=== PATIENT | female | born 1950 | race African-American/Black ===

== ENCOUNTER 2018-05-06 16:56 | Inpatient (IN) | payer OTHER ==
--- NOTE | 2018-05-06 17:21 | PDOC ---
Attending Attestation - Resident Resident Name: Cathi Gee - ED Attending Attestation I have performed the following: I have examined & evaluated the patient, The case was reviewed & discussed with the resident, I agree w/resident's findings & plan, Exceptions are as noted - Physicial Exam PE: 05/06/18 17:59 Twelve-lead EKG was performed and reviewed by me. There is normal sinus rhythm with a normal rate. rate of 71 The axis is normal. The intervals are normal. There is normal R wave progression There are no ST or T wave abnormalities. Impression: Normal twelve-lead EKG - Medical Decision Making 05/06/18 17:32 68y F hx of htn, MVP presents with epigastric discomfort that feels like 'gas pain' last night after eating a meal, had some milk of magnesia that help resolve the pain until she had breakfast this morning when the pain returned and has been constant. pt notes some nausea, and denies any fever/chills, diarrhea, bpr, cp, sob, diaphoresis. pt notes having a similar episode of this 6 months ago after eating fatty food that resolved spontaneously. suspect possible gastritis vs pancreatitis vs gall stones will obtain blood work ekg to screen for acs will obtain RUQ US will give pepcid/maalox toradol for pain will reassess <Reymundo Currie - Last Filed: 05/06/18 17:55> - HPI HPI: 05/06/18 18:17 The patient is a 68 year old female, with a significant past medical history of HTN and MVP, who presents to the emergency department with, 2 days of epigastric pain. As per patient, her pain onset with associated nausea radiating to her chest and back. She notes taking milk of magnesia yesterday, with relief. She notes her pain onset once again after eating breakfast and persisted, prompting her visit to the ED today. She denies recent fevers, chills, headache or dizziness. She denies recent vomit. She denies recent dysuria, frequency, urgency or hematuria. She denies recent chest pain or shortness of breath. Allergies: Codeine. Past surgical history: Tonsillectomy, fibroidectomy Social history: Nonsmoker. Denies EtOH use and recreational drug use. Primary Care Physician: Dr. Kenney ([facility]) <Rick Giraldo - Last Filed: 05/06/18 18:17> Attestations - Attestations 05/06/18 18:17 Documentation prepared by Rick Giraldo, acting as medical health researcher for Reymundo Currie MD. <Rick Giraldo - Last Filed: 05/06/18 18:17>
[2018-05-06] MEDS ORDERED: FAMOTIDINE 20 MG/50 ML IVPB 20 MG/50 ML MG IVPB ONE ×2 (17:25→17:46)
[2018-05-06] MEDS ORDERED: SODIUM CHLORIDE 1,000 ML IV STA (17:25)
--- NOTE | 2018-05-06 17:30 | PDOC ---
History of Present Illness - General Chief Complaint: Pain Stated Complaint: ABDOMINAL PAIN Time Seen by Provider: 05/06/18 17:09 History Source: Patient Exam Limitations: No Limitations - History of Present Illness Initial Comments: 05/06/18 17:27 Pt is a 68yo f with PMH of HTN and MVP presenting to ED with complaints of abdominal pain that started last night. [place] said [place] in [place] and had [place] food. She started having upper abdominal pain. She took MoM but and it helped but the pain returned half an hour after she had breakfast today and has not gone away. Pain is in the upper abdomen, sometimes radiates to the back and the chest. Pt describes the pain as "gas pain". Not relieved or aggrevated by anything. She admits to nausea, but denies vomiting, diarrhea, constipation, blood in stool, fever, urinary symptoms, shortness of breath. Her sister was with her and is not experiencing the same symptoms. PMD: Molina Kenney PMH: see hpi PSH: tonsillectomy, fibroidectomy Meds: atenolol, hctz Social: denies Allergies: codeine (hallucinations) Past History - Past Medical History Allergies/Adverse Reactions: Allergies Allergy/AdvReac Type Severity Reaction Status Date / Time codeine Allergy Verified 05/06/18 17:01 Home Medications: Ambulatory Orders Atenolol [Tenormin -] 50 mg PO DAILY 05/06/18 Hydrochlorothiazide 25 mg PO DAILY 05/06/18 Cardiac Disorders: Yes (MVP) COPD: No HTN: Yes - Suicide/Smoking/Psychosocial Hx Smoking History: Never smoked Review of Systems - Review of Systems Constitutional: Yes: Weight Stable. No: Chills, Fever HEENTM: No: Symptoms Reported Respiratory: No: Cough, Shortness of Breath Cardiac (ROS): Yes: Chest Pain (feels like "gas"). No: Lightheadedness, Palpitations, Syncope, Chest Tightness ABD/GI: Yes: Nausea, Abdominal cramping (epigastric). No: Blood Streaked Bowels , Constipated, Diarrhea, Vomiting, Tarry Stools : No: Burning, Dysuria, Hematuria Musculoskeletal: Yes: Back Pain. No: Joint Pain, Muscle Pain, Neck Pain Integumentary: No: Rash Neurological: No: Headache, Numbness, Paresthesia, Tingling *Physical Exam - Vital Signs Last Vital Signs Temp Pulse Resp BP Pulse Ox 97.7 F 89 18 172/57 H 98 05/06/18 16:57 05/06/18 16:57 05/06/18 16:57 05/06/18 16:57 05/06/18 16:57 - Physical Exam General Appearance: Yes: Nourished, Appropriately Dressed. No: Apparent Distress HEENT: positive: EOMI, JIM, Pharynx Normal Neck: positive: Trachea midline, Supple. negative: Lymphadenopathy (R), Lymphadenopathy (L) Respiratory/Chest: positive: Lungs Clear, Normal Breath Sounds. negative: Crackles, Rales, Rhonchi, Wheezing Cardiovascular: positive: Regular Rhythm, Regular Rate, S1, S2. negative: Edema , JVD, Murmur Vascular Pulses: Carotid (R): 2+, Carotid (L): 2+, Dorsalis-Pedis (R): 2+, Doralis-Pedis (L): 2+ Gastrointestinal/Abdominal: positive: Normal Bowel Sounds, Soft, Tenderness ( epigastric tenderness. ). negative: Protuberent, Distended, Guarding, Rebound, Hernia, Mass Musculoskeletal: negative: CVA Tenderness, Vertebral Tenderness Extremity: positive: Normal Capillary Refill. 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 No signs of pericholecystic fluid, GB edema or duct dilation. Negative sonographic brothers's sign. Formal ultrasound ordered. ED Treatment Course - LABORATORY CBC & Chemistry Diagram: 05/06/18 17:40 05/06/18 17:40 Medical Decision Making - Medical Decision Making 05/06/18 18:48 Pt is a 68yo f with PMH of HTN and MVP presenting to ED with complaints of abdominal pain that started last night. crampy epigastric abdominal pain. Had fatty foods (fried mac and cheese, sausage) Vitals: Selected Entries 05/06/18 16:57 Temperature 97.7 F Pulse Rate 89 Respiratory 18 Rate Blood Pressure 172/57 H Blood Pressure 95 Mean O2 Sat by Pulse 98 Oximetry (%) PE: epigastric tenderness DDx: pancreatitis, cholecystitis, appendicitis, colitis, AAA, nephrolithiasis, pyelonephritis, ACS, PNA -low suspicion for pna given lack of cough, fevers. low suspicion for nephrolithiais with lack of urinary symptoms and flank pain. Seems more like cholecystitis v. pancreatitis v. GERD v. PUD cbc, cmp, trop, lipase, lactate, U/S, EKG, NS, pepcid, Maalox ordered. 05/06/18 18:49 Pt complaining of pain, will give IV Tylenol and reevaluate. 05/06/18 18:52 Laboratory Tests 05/06/18 05/06/18 05/06/18 17:24 17:40 17:40 WBC 7.0 Hgb 14.1 Hct 42.4 Plt Count 260 Sodium 136 Potassium 5.1 Chloride 103 BUN 19 H Creatinine 1.1 Random Glucose 166 H Lactic Acid Troponin I < 0.02 Lipase 99 05/06/18 17:40 WBC Hgb Hct Plt Count Sodium Potassium Chloride BUN Creatinine Random Glucose Lactic Acid 2.2 H* Troponin I Lipase Lipase normal, low suspicion for pancreatitis. LFTs normal, lower suspicion for cholecystitis but U/S pending. T.Bili slightly elevated. Waiting for ultrasound results. If negative, will reevaluate patient and dispo. CT scan may be necessary. Signed out to night team. Second lactate should be drawn. *DC/Admit/Observation/Transfer Diagnosis at time of Disposition: Abdominal pain Qualifiers: Abdominal location: epigastric Qualified Code(s): R10.13 - Epigastric pain - Referrals - Patient Instructions - Post Discharge Activity
[2018-05-06] MEDS ORDERED: MAG HYDROX/AL HYDROX/SIMETH 30 ML UNIT-DOSE CUP PO ONE (17:31)
[2018-05-06] MEDS ORDERED: MAG HYDROX/AL HYDROX/SIMETH 30 ML UNIT-DOSE CUP ONE (17:46)
[2018-05-06 17:53] LABS: BASO % 0.4 % (0-2.0); EOS % 0.6 % (0-4.5); HEMATOCRIT 42.4 % (32.4-45.2); HEMOGLOBIN 14.1 GM/dL (10.7-15.3); LYMPH % 25.7 % (8-40); MCHC 33.2 g/dl (32.0-36.0); MEAN CELL VOLUME 84.5 fl (80-96); MEAN PLT VOLUME 9.3 fl (7.5-11.1); MONO % 4.8 % (3.8-10.2); NEUT % 68.5 % (42.8-82.8); PLATELET COUNT 260 K/MM3 (134-434); RBC 5.02 M/mm3 (3.60-5.2); RDW 13.8 % (11.6-15.6)
[2018-05-06 18:21] LABS: ALBUMIN 3.8 g/dl (3.4-5.0); ALK PHOS 100 U/L (45-117); BILIRUBIN,TOTAL 1.2 mg/dL (0.2-1); BLOOD UREA NITROGEN 19 mg/dL (7-18); CALCIUM 8.8 mg/dL (8.5-10.1); CHLORIDE 103 mmol/L (98-107); CO2 26 mmol/L (21-32); CREATININE 1.1 mg/dL (0.55-1.3); GLUCOSE,RANDOM 166 mg/dL (74-106); SGPT/ALT 43 U/L (13-61); SODIUM 136 mmol/L (136-145); TOT PROT 6.8 g/dl (6.4-8.2)
[2018-05-06 18:22] LABS: ANION GAP 8 MMOL/L (8-16); POTASSIUM 5.1 mmol/L (3.5-5.1); SGOT/AST 33 U/L (15-37)
[2018-05-06 18:35] LABS: LIPASE 99 U/L (73-393)
[2018-05-06] MEDS ORDERED: ACETAMINOPHEN 1000 MG/100 ML VIAL (NON FORMULARY) IVPB ONE (18:47)
[2018-05-06] MEDS ORDERED: ACETAMINOPHEN INJECTION 100 ML IVPB ONE ×2 (18:50→21:51)
[2018-05-06 19:02] LABS: URINE APPEARANCE CLEAR; URINE BILIRUBIN NEGATIVE (<2.0 mg/dL); URINE COLOR LTYELLOW; URINE GLUCOSE (UA) 1+ (NEGATIVE); URINE KETONE NEGATIVE (NEGATIVE); URINE LEUK ESTERASE 3+ (NEGATIVE); URINE NITRITE NEGATIVE (NEGATIVE); URINE PROTEIN 1+ (NEGATIVE); URINE UROBILINOGEN NEGATIVE mg/dL (0.2-1.0)
[2018-05-06 19:09] LABS: EPI CELLS FEW /HPF (FEW); URINE BACTERIA RARE /hpf (NONE SEEN); URINE MUCUS RARE
[2018-05-06] MEDS ORDERED: FUROSEMIDE 40 MG/4 ML INJECTABLE VIAL IVPUSH ONE (20:18)
[2018-05-06] MEDS ORDERED: CEFTRIAXONE 1,000 MG in DEXTROSE 5%-WATER - 50 ML IVPB ONE (20:26)
--- NOTE | 2018-05-06 20:31 | PDOC ---
*Physical Exam - Vital Signs Last Vital Signs Temp Pulse Resp BP Pulse Ox 97.7 F 89 18 172/57 H 98 05/06/18 16:57 05/06/18 16:57 05/06/18 16:57 05/06/18 16:57 05/06/18 16:57 ED Treatment Course - LABORATORY CBC & Chemistry Diagram: 05/06/18 17:40 05/06/18 17:40 - ADDITIONAL ORDERS Additional order review: Laboratory Results 05/06/18 05/06/18 05/06/18 19:28 18:45 17:40 Sodium Potassium Chloride Carbon Dioxide Anion Gap BUN Creatinine Creat Clearance w eGFR Random Glucose Lactic Acid 2.2 H* 2.2 H* Calcium Total Bilirubin AST ALT Alkaline Phosphatase Troponin I Total Protein Albumin Lipase Urine Color Ltyellow Urine Appearance Clear Urine pH 7.0 Ur Specific [place] 1.013 Urine Protein 1+ H Urine Glucose (UA) 1+ H Urine Ketones Negative Urine Blood Negative Urine Nitrite Negative Urine Bilirubin Negative Urine Urobilinogen Negative Ur Leukocyte Esterase 3+ H Urine WBC (Auto) 18 Urine RBC (Auto) 4 Ur Epithelial Cells Few Urine Bacteria Rare Urine Mucus Rare 05/06/18 05/06/18 17:40 17:24 Sodium 136 Potassium 5.1 Chloride 103 Carbon Dioxide 26 Anion Gap 8 BUN 19 H Creatinine 1.1 Creat Clearance w eGFR 49.25 Random Glucose 166 H Lactic Acid Calcium 8.8 Total Bilirubin 1.2 H AST 33 ALT 43 Alkaline Phosphatase 100 Troponin I < 0.02 Total Protein 6.8 Albumin 3.8 Lipase 99 Urine Color Urine Appearance Urine pH Ur Specific [place] Urine Protein Urine Glucose (UA) Urine Ketones Urine Blood Urine Nitrite Urine Bilirubin Urine Urobilinogen Ur Leukocyte Esterase Urine WBC (Auto) Urine RBC (Auto) Ur Epithelial Cells Urine Bacteria Urine Mucus 05/06/18 17:40 RBC 5.02 MCV 84.5 MCHC 33.2 RDW 13.8 MPV 9.3 Neutrophils % 68.5 Lymphocytes % 25.7 Monocytes % 4.8 Eosinophils % 0.6 Basophils % 0.4 - Medications Given in the ED: ED Medications Discontinued Medications Generic Name Dose Route Start Last Admin Trade Name Freq PRN Reason Stop Dose Admin Acetaminophen 1,000 mg 05/06/18 18:47 05/06/18 18:50 Ofirmev Injection - IVPB 05/06/18 18:48 1,000 mg ONCE ONE Administration Al Hydroxide/Mg Hydroxide 30 ml 05/06/18 17:31 05/06/18 17:58 Mylanta Oral Suspension - PO 05/06/18 17:32 30 ml ONCE ONE Administration Sodium Chloride 1,000 mls @ 1,000 mls/hr 05/06/18 17:25 05/06/18 17:58 Normal Saline - IV 05/06/18 18:24 1,000 mls/hr ASDIR STA Administration Famotidine/Sodium Chloride 20 mg in 50 mls @ 100 mls/hr 05/06/18 17:25 17:58 Pepcid 20 Mg Premixed Ivpb - IVPB 05/06/18 17:54 100 mls/hr ONCE ONE Administration Medical Decision Making - Medical Decision Making 05/06/18 20:21 I received the patient on signout and she has an unchanged lactic acid despite treatment in the ER. 05/06/18 20:31 Patient Name: DENISE HERNÁNDEZ PRELIMINARY REPORT FROM [facility] EXAM: Ultrasound abdomen, limited and Duplex scan abdomen DATE: 2018-05-06 18:09:53 IMAGES: 57 HISTORY: Cholecystitis REPORT: Multiple gallstones are present. No definite sign of acute inflammation. No biliary dilation seen. Liver shows no definite focal mass. Right kidney shows no hydronephrosis. Portal vein shows unremarkable venous waveform with hepatopedal flow. THIS DOCUMENT HAS BEEN ELECTRONICALLY SIGNED 05/06/18 20:51 Pt will be admitted to the hospitalist for observation; she has large gallstones and biliary colic however, no cholecystitis at this time. Tbili is slightly elevated. She may have a stone going in and out of the duct. Pt has an elevated lactic acid. Pt also has an early UTI. *DC/Admit/Observation/Transfer Diagnosis at time of Disposition: Abdominal pain Qualifiers: Abdominal location: epigastric Qualified Code(s): R10.13 - Epigastric pain - Referrals - Patient Instructions - Post Discharge Activity
[2018-05-06] MEDS ORDERED: CEFTRIAXONE 1 GM/50 ML BAG ONE (20:41)
--- NOTE | 2018-05-06 20:52 | PN ---
Teaching Attending Note Name of Resident: Steve Mcclelland ATTENDING PHYSICIAN STATEMENT I saw and evaluated the patient. I reviewed the resident's note and discussed the case with the resident. I agree with the resident's findings and plan as documented. SUBJECTIVE: Patient is a 68 year old woman with PMH of HTN and MVP presenting to ER with complaints of abdominal pain that started last night. [place] in [place] and had [place] food and started having upper abdominal pain. She took MoM and it helped but the pain returned half an hour after she had breakfast today and has not gone away. Pain is in the upper abdomen, sometimes radiates to the back and the chest. Describes the pain as "gas pain". Not relieved or aggravated by anything. She admits to nausea, but denies vomiting, diarrhea, constipation, blood in stool, fever, urinary symptoms, shortness of breath. Her sister was with her and is not experiencing the same symptoms. OBJECTIVE: Alert Vital Signs Period Temp Pulse Resp BP Sys/Pratt Pulse Ox Last 24 Hr 97.7 F-98.3 F 66-89 18-20 172-179/57-77 98-99 HEENT: No Jaundice, eye redness or discharge, PERRLA, EOMI. Normocephalic, atraumatic. External ears are normal and hearing is grossly intact. No nasal discharge. Neck: Supple, nontender. No palpable adenopathy or thyromegaly. No JVD Chest: Good effort. Clear to auscultation and percussion. Heart: Regular. No S3 or rub; 2/6 REINA Abdomen: Not distended, soft, nontender and no HSM. No rebound or guarding. Normoactive bowel sounds. Ext: Peripheral pulses intact. No leg edema. Skin: Warm and dry. No petechiae, rash or ecchymosis. Neuro: Alert. Oriented x3. CN 2-12 grossly intact. Sensation grossly intact in all four extremities and DTR are symmetric. Current Medications Generic Name Dose Route Start Last Admin Trade Name Freq PRN Reason Stop Dose Admin Ceftriaxone Sodium 1,000 mg/ 50 mls @ 100 mls/hr 05/06/18 20:26 Dextrose IVPB 05/06/18 20:55 ONCE ONE Home Medications Medication Instructions Recorded Atenolol [Tenormin -] 50 mg PO DAILY 05/06/18 Hydrochlorothiazide 25 mg PO DAILY 05/06/18 Abnormal Lab Results 05/06/18 05/06/18 05/06/18 17:40 17:40 18:45 BUN 19 H Random Glucose 166 H Lactic Acid 2.2 H* Total Bilirubin 1.2 H Urine Protein 1+ H Urine Glucose (UA) 1+ H Ur Leukocyte Esterase 3+ H 05/06/18 19:28 BUN Random Glucose Lactic Acid 2.2 H* Total Bilirubin Urine Protein Urine Glucose (UA) Ur Leukocyte Esterase ASSESSMENT AND PLAN: 1. Abdominal pain and UTI - Pain likely due to cholelithiasis. No evidence of cholecyctitis at this time. Will get CT abdomen and HIDA scan and consult GI and Surgery. Treat UTI with rocephin 1 gm q 24 hours. No acute pathology on CXR and EKG shows NSR with no significant ST-T wave changes. Initial troponin is negative. Lactic acidosis is unexplained since there is no other significant evidence of sepsis. Keep her NPO for now and continue IV NS and trend lactic acid level. Will restart her antihypertensive medications but reduce HCTZ to 12.5 mg q am, give atenolol 50 mg po q am and add amlodipine 5 mg po q pm. Check HBA1c. 2. Obesity - Will provide patient all the necessary assistance, counseling and positive reinforcement to facilitate weight loss. Consult welt edge rounder. 3. DVT prophylaxis - Lovenox 40 mg SQ q 24 hours. 4. Advance directives - Full code
--- NOTE | 2018-05-06 20:52 | PDOC ---
*Physical Exam - Vital Signs Last Vital Signs Temp Pulse Resp BP Pulse Ox 98.3 F 66 20 179/77 H 99 05/06/18 20:21 05/06/18 20:21 05/06/18 20:21 05/06/18 20:21 05/06/18 20:21 ED Treatment Course - LABORATORY CBC & Chemistry Diagram: 05/06/18 17:40 05/06/18 17:40 - ADDITIONAL ORDERS Additional order review: Laboratory Results 05/06/18 05/06/18 05/06/18 19:28 18:45 17:40 Sodium Potassium Chloride Carbon Dioxide Anion Gap BUN Creatinine Creat Clearance w eGFR Random Glucose Lactic Acid 2.2 H* 2.2 H* Calcium Total Bilirubin AST ALT Alkaline Phosphatase Troponin I Total Protein Albumin Lipase Urine Color Ltyellow Urine Appearance Clear Urine pH 7.0 Ur Specific [place] 1.013 Urine Protein 1+ H Urine Glucose (UA) 1+ H Urine Ketones Negative Urine Blood Negative Urine Nitrite Negative Urine Bilirubin Negative Urine Urobilinogen Negative Ur Leukocyte Esterase 3+ H Urine WBC (Auto) 18 Urine RBC (Auto) 4 Ur Epithelial Cells Few Urine Bacteria Rare Urine Mucus Rare 05/06/18 05/06/18 17:40 17:24 Sodium 136 Potassium 5.1 Chloride 103 Carbon Dioxide 26 Anion Gap 8 BUN 19 H Creatinine 1.1 Creat Clearance w eGFR 49.25 Random Glucose 166 H Lactic Acid Calcium 8.8 Total Bilirubin 1.2 H AST 33 ALT 43 Alkaline Phosphatase 100 Troponin I < 0.02 Total Protein 6.8 Albumin 3.8 Lipase 99 Urine Color Urine Appearance Urine pH Ur Specific [place] Urine Protein Urine Glucose (UA) Urine Ketones Urine Blood Urine Nitrite Urine Bilirubin Urine Urobilinogen Ur Leukocyte Esterase Urine WBC (Auto) Urine RBC (Auto) Ur Epithelial Cells Urine Bacteria Urine Mucus 05/06/18 17:40 RBC 5.02 MCV 84.5 MCHC 33.2 RDW 13.8 MPV 9.3 Neutrophils % 68.5 Lymphocytes % 25.7 Monocytes % 4.8 Eosinophils % 0.6 Basophils % 0.4 - Medications Given in the ED: ED Medications Discontinued Medications Generic Name Dose Route Start Last Admin Trade Name Freq PRN Reason Stop Dose Admin Acetaminophen 1,000 mg 05/06/18 18:47 05/06/18 18:50 Ofirmev Injection - IVPB 05/06/18 18:48 1,000 mg ONCE ONE Administration Al Hydroxide/Mg Hydroxide 30 ml 05/06/18 17:31 05/06/18 17:58 Mylanta Oral Suspension - PO 05/06/18 17:32 30 ml ONCE ONE Administration Sodium Chloride 1,000 mls @ 1,000 mls/hr 05/06/18 17:25 05/06/18 17:58 Normal Saline - IV 05/06/18 18:24 1,000 mls/hr ASDIR STA Administration Famotidine/Sodium Chloride 20 mg in 50 mls @ 100 mls/hr 05/06/18 17:25 17:58 Pepcid 20 Mg Premixed Ivpb - IVPB 05/06/18 17:54 100 mls/hr ONCE ONE Administration *DC/Admit/Observation/Transfer Diagnosis at time of Disposition: Abdominal pain Qualifiers: Abdominal location: epigastric Qualified Code(s): R10.13 - Epigastric pain - Discharge Dispostion Decision to Admit order: Yes - Referrals - Patient Instructions - Post Discharge Activity
--- NOTE | 2018-05-06 21:28 | CONSULT ---
Consult Consult Specialty:: General surgery Reason for Consultation:: Bilary colic - History of Present Illness Chief Complaint: abdominal pain History of Present Illness: 68yo female PMH obesity, HTN and MVP presenting to ED with complaints of abdominal pain that started last night. [place] said [place] was in [place] and had Muslim food. She started having upper abdominal pain. She took MoM but and it helped but the pain returned half an hour after she had breakfast today and has not gone away. Abdominal ultrasound showed cholelithiasis with out signs of acute cholecystitis. we were asked to assess. - History Source History Provided By: Patient, Medical Record Limitations to Obtaining History: No Limitations - Smoking History Smoking history: Never smoked Home Medications - Allergies Allergies/Adverse Reactions: Allergies Allergy/AdvReac Type Severity Reaction Status Date / Time codeine Allergy Verified 05/06/18 17:01 - Home Medications Home Medications: Ambulatory Orders Atenolol [Tenormin -] 50 mg PO DAILY 05/06/18 Hydrochlorothiazide 25 mg PO DAILY 05/06/18 Review of Systems - Review of Systems Constitutional: denies: Chills, Fever Eyes: denies: Blind Spots, Recent Change in Vision HENT: denies: Difficult Swallowing, Throat Pain Neck: denies: Tenderness Cardiovascular: denies: Chest Pain Respiratory: denies: Cough, SOB Gastrointestinal: reports: Abdominal Pain. denies: Constipation, Diarrhea Genitourinary: denies: Burning, Discharge, Dysuria Breasts: reports: No Symptoms Reported. denies: Pain Musculoskeletal: denies: Back Pain, Muscle Cramps, Muscle Weakness Integumentary: denies: Eczema, Erythema, Rash Neurological: denies: Seizure, Syncope, Tremors Endocrine: denies: Unexplained Weight Gain, Unexplained Weight Loss Hematology/Lymphatic: denies: Easily Bruised, Excessive Bleeding Psychiatric: denies: Anxiety, Depression Physical Exam Vital Signs: Vital Signs Temperature 98.3 F 05/06/18 20:21 Pulse Rate 66 05/06/18 20:21 Respiratory Rate 20 05/06/18 20:21 Blood Pressure 179/77 H 05/06/18 20:21 O2 Sat by Pulse Oximetry (%) 99 05/06/18 20:21 Constitutional: Yes: Well Nourished, No Distress, Obese Eyes: Yes: Conjunctiva Clear, EOM Intact HENT: Yes: Atraumatic, Normocephalic Neck: Yes: Supple, Trachea Midline Cardiovascular: Yes: Regular Rate and Rhythm Respiratory: Yes: Regular, CTA Bilaterally Gastrointestinal: Yes: Normal Bowel Sounds, Soft, Abdomen, Obese, Tenderness ( RUQ on deep palpation) ...Rectal Exam: Yes: Deferred Renal/: No: CVA Tenderness - Left, CVA Tenderness - Right Musculoskeletal: No: Muscle Pain, Muscle Weakness Extremities: No: Cool, Cyanosis Edema: No Peripheral Pulses WNL: Yes Integumentary: No: Jaundice, Rash Neurological: Yes: Alert, Oriented Psychiatric: Yes: Alert, Oriented Labs: CBC, BMP 05/06/18 17:40 05/06/18 17:40 Imaging - Results Ultrasound: Report Reviewed, Image Reviewed (cholelithiasis distended gallbladder) Problem List - Problems (1) Calculus of gallbladder and bile duct with cholecystitis Assessment/Plan: 68 yo female PMH obesity and HTN presented with right upper quadrant abdominal pain NPO and IVF hydration adequate analgesia repeat labs in AM Advance diet as tolerated then discharge and f/u for elective cholecystecomy - information provided Thank you for the opportunity to participate in the care of this patient. Code(s): K80.60 - CALCULUS OF GB AND BILE DUCT W CHOLECYST, UNSP, W/O OBST Qualifiers: Cholecystitis acuity: acute and chronic Biliary obstruction: without biliary obstruction Qualified Code(s): K80.66 - Calculus of gallbladder and bile duct with acute and chronic cholecystitis without obstruction (2) Obesity (BMI 30-39.9) Code(s): E66.9 - OBESITY, UNSPECIFIED (3) HTN (hypertension) Code(s): I10 - ESSENTIAL (PRIMARY) HYPERTENSION Qualifiers: Hypertension type: essential hypertension Qualified Code(s): I10 - Essential (primary) hypertension (4) Biliary colic symptom Code(s): K80.50 - CALCULUS OF BILE DUCT W/O CHOLANGITIS OR CHOLECYST W/O OBST
[2018-05-06] MEDS ORDERED: SODIUM CHLORIDE 0.9% 500 ML INFUS.BAG IV ONE (21:30)
[2018-05-06] MEDS ORDERED: SODIUM CHLORIDE 1,000 ML IV ONE (21:45)
[2018-05-06] MEDS ORDERED: HYDROCHLOROTHIAZIDE 25 MG TABLET (FP) PO ONE (21:52)
--- NOTE | 2018-05-06 22:16 | HP ---
CHIEF COMPLAINT: Epigastric abdominal pain PCP: Dr. Molina Kenney HISTORY OF PRESENT ILLNESS: Patient is a 68 year old female with history of hypertension, presents with complaint of epigastric abdominal pain. Began yesterday evening approx. 8pm after visiting [facility] and eating fried fish, macaroni and cheese, cook islander fries and pecan pie. She described pain as cramping initially localized to the epigastrium, and progressively radiating diffusely within the abdomen, and to chest and back. Pain associated with feeling "gassy, and bloated ", in addition to nausea, without any vomiting. She drank milk of magnesia which was palliative. This morning she had breakfast of sausage with grapefruit which provoked the similar symptoms from the prior night. Patient admits similar symptoms 6 months ago after eating a cheeseburger, which resolved spontaneously, and was not worked up by primary care physician or any emergency department. She currently states pain is 1/10 intensity, significantly improved. Denies fevers, chills, shortness of breath, chest pain, palpitations, vomiting, diarrhea, constipation, melena, hematochezia, dysuria, hematuria, urinary frequency, fall, loss of conciousness, trauma to abdomen. ER course was notable for: (1) IV normal saline 1L bolus, (2) Pepcid 20mg IV, Mylanta 30mL PO, Ofirmev 1000mL IV, Rocephin 1gram IV (3) Ultrasound abdomen: numerous gallstones, without definite sins of acute inflammation. No biliary dilation noted. 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 Family History: Mother: at 38 y/o due to unknown "kidney issues" Father: at 74 y/o due to prostate cancer Allergies codeine Allergy (Verified 05/06/18 17:01) HOME MEDICATIONS: Home Medications Medication Instructions Recorded Atenolol [Tenormin -] 50 mg PO DAILY 05/06/18 Hydrochlorothiazide 25 mg PO DAILY 11/11/18 REVIEW OF SYSTEMS CONSTITUTIONAL: Absent: fever, chills, diaphoresis, generalized weakness, malaise, loss of appetite, weight change HEENT: Absent: rhinorrhea, nasal congestion, throat pain, throat swelling, difficulty swallowing, mouth swelling, ear pain, eye pain, visual changes CARDIOVASCULAR: Absent: chest pain, syncope, palpitations, irregular heart rate, lightheadedness , peripheral edema RESPIRATORY: Absent: cough, shortness of breath, dyspnea with exertion, orthopnea, wheezing, stridor, hemoptysis GASTROINTESTINAL: Admits: abdominal pain, nausea, Absent: abdominal distension, vomiting, diarrhea , constipation, melena, hematochezia GENITOURINARY: Absent: dysuria, frequency, urgency, hesitancy, hematuria, flank pain, genital pain MUSCULOSKELETAL: Absent: myalgia, arthralgia, joint swelling, back pain, neck pain SKIN: Absent: rash, itching, pallor HEMATOLOGIC/IMMUNOLOGIC: Absent: easy bleeding, easy bruising, lymphadenopathy, frequent infections ENDOCRINE: Absent: unexplained weight gain, unexplained weight loss, heat intolerance, cold intolerance NEUROLOGIC: Absent: headache, focal weakness or paresthesias, dizziness, unsteady gait, seizure, mental status changes, bladder or bowel incontinence PSYCHIATRIC: Absent: anxiety, depression, suicidal or homicidal ideation, hallucinations. PHYSICAL EXAMINATION Vital Signs - 24 hr 05/06/18 05/06/18 16:57 20:21 Temperature 97.7 F 98.3 F Pulse Rate 89 Pulse Rate [ 66 Radial] Respiratory 18 20 Rate Blood Pressure 172/57 H Blood Pressure 179/77 H [Left Arm] O2 Sat by Pulse 98 99 Oximetry (%) GENERAL: -Swedish female, appears state age. Awake, alert, and fully oriented, in no acute distress. HEAD: Normal with no signs of trauma. EYES: Pupils equal, round and reactive to light, extraocular movements intact without nystagmus, sclera anicteric, conjunctiva clear. EARS, NOSE, THROAT: Ears normal, nares patent, oropharynx clear without exudates. Moist mucous membranes. NECK: Normal range of motion, supple without lymphadenopathy, JVD, or masses. LUNGS: Breath sounds equal, clear to auscultation bilaterally. No wheezes, and no crackles. No accessory muscle use. HEART: Regular rate and rhythm, normal S1 and S2 with 2/6 holosystolic murmur loudest at apex ABDOMEN: Obese. Soft, mildly distended. Slight tenderness within epigastrium to deep palpation. No guarding, no rebound tenderness. Negative Ram's sign. Normoactive bowel sounds X4 quadrants. No heparosplenomegaly palpated or percussed. MUSCULOSKELETAL: Normal range of motion at all joints b/l upper and lower extremities. No bony deformities or tenderness. No CVA tenderness. UPPER EXTREMITIES: 2+ radial pulses b/l, warm, well-perfused. LOWER EXTREMITIES: 2+ dorsalis pedis pulses b/l, warm, well-perfused. No peripheral edema b/l. NEUROLOGICAL: Cranial nerves II-XII intact. Normal speech. Strength 5/5 b/l upper and lower extremities. PSYCHIATRIC: Cooperative. Good eye contact. Appropriate mood and affect upon my encounter today. SKIN: Warm, dry, normal turgor, no rashes or lesions noted, normal capillary refill. Laboratory Results - last 24 hr 05/06/18 05/06/18 05/06/18 17:24 17:40 17:40 WBC 7.0 RBC 5.02 Hgb 14.1 Hct 42.4 MCV 84.5 MCH 28.0 MCHC 33.2 RDW 13.8 Plt Count 260 MPV 9.3 Absolute Neuts (auto) 4.8 Neutrophils % 68.5 Lymphocytes % 25.7 Monocytes % 4.8 Eosinophils % 0.6 Basophils % 0.4 Nucleated RBC % 0 Sodium 136 Potassium 5.1 Chloride 103 Carbon Dioxide 26 Anion Gap 8 BUN 19 H Creatinine 1.1 Creat Clearance w eGFR 49.25 Random Glucose 166 H Lactic Acid Calcium 8.8 Total Bilirubin 1.2 H AST 33 ALT 43 Alkaline Phosphatase 100 Troponin I < 0.02 Total Protein 6.8 Albumin 3.8 Lipase 99 Urine Color Urine Appearance Urine pH Ur Specific [place] Urine Protein Urine Glucose (UA) Urine Ketones Urine Blood Urine Nitrite Urine Bilirubin Urine Urobilinogen Ur Leukocyte Esterase Urine WBC (Auto) Urine RBC (Auto) Ur Epithelial Cells Urine Bacteria Urine Mucus 05/06/18 05/06/18 05/06/18 17:40 18:45 19:28 WBC RBC Hgb Hct MCV MCH MCHC RDW Plt Count MPV Absolute Neuts (auto) Neutrophils % Lymphocytes % Monocytes % Eosinophils % Basophils % Nucleated RBC % Sodium Potassium Chloride Carbon Dioxide Anion Gap BUN Creatinine Creat Clearance w eGFR Random Glucose Lactic Acid 2.2 H* 2.2 H* Calcium Total Bilirubin AST ALT Alkaline Phosphatase Troponin I Total Protein Albumin Lipase Urine Color Ltyellow Urine Appearance Clear Urine pH 7.0 Ur Specific [place] 1.013 Urine Protein 1+ H Urine Glucose (UA) 1+ H Urine Ketones Negative Urine Blood Negative Urine Nitrite Negative Urine Bilirubin Negative Urine Urobilinogen Negative Ur Leukocyte Esterase 3+ H Urine WBC (Auto) 18 Urine RBC (Auto) 4 Ur Epithelial Cells Few Urine Bacteria Rare Urine Mucus Rare ASSESSMENT/PLAN: Patient is a 68 year old female with history of hypertension, presents with complaint of epigastric abdominal pain. Cholelithiasis -Ultrasound of gallbladder confirms presence of stones, without acute inflammation. -F/U CT abdomen pelvis -NPO -Surgery consult (Dr. Camejo) -GI consult (Dr. Perez) -IV normal saline at 100mL/ hour -Pain control with Ofirmev 1000mg IV Q6H Chest pain -Will rule out cardiac pathology as abdominal pain in female could be atypical cardiac etiology. -EKG shows normal sinus rhythm at 71 bpm. -First troponin 0.02. Will follow. Elevated lactic acid -Unclear etiology. May be suggestive of early cholecystitis? -2.2 -> 2.2 after one liter bolus normal saline. Will continue to hydrate with IV normal saline at 100mL/ hour and follow lactic acid. -UA does show 3+ leukocyte esterase, 18 WBC,m 4 RBC. Patient denies dysuria, hematuria, urinary urgency, frequency. No CVA tenderness upon exam. -Will continue Rocephin 1 gram IV Q24H for UTI -Chest Xray to rule out pulmonary pathology. Hypertension -Hydrochlorothiazide 12.5mg PO one time dose now. -Reinstate Atenolol 50mg PO daily -Change dose of Hydrochlorothiazide 25mg PO daily to 12.5mg PO daily -Begin Amlodipine 5mg PO QHS Obesity -BMI 36.1 -Counselled regarding importance of healthy diet and exercise -medicaid business analyst evaluation Hyperglycemia -Patient denies history of diabetes -F/U HbA1c FEN -IV normal saline at 100mL/ hour -Within normal limits. Follow CMP -NPO after midnight Prophylaxis -SCDs, TEDs b/l lower extremities. Will hold chemical anticoagulation in anticipation of possible surgical procedure. Disposition: -Admit to medical-surgical floor. Visit type - Emergency Visit Emergency Visit: Yes ED Registration Date: 05/06/18 Care time: The patient presented to the Emergency Department on the above date and was hospitalized for further evaluation of their emergent condition. - New Patient This patient is new to me today: Yes Date on this admission: 05/07/18 - Critical Care Critical Care patient: No
[2018-05-06] MEDS ORDERED: amLODIPine BESYLATE 5 MG TABLET (FP) ONE (22:59)
[2018-05-06] MEDS ORDERED: HYDROCHLOROTHIAZIDE 25 MG TABLET (FP) ONE (22:59)
[2018-05-06] MEDS: amLODIPine BESYLATE 5 MG TABLET (FP) PO SCH (23:00)
[2018-05-07 07:51] LABS: MAGNESIUM 2.3 mg/dL (1.8-2.4); PHOSPHOROUS 2.1 mg/dL (2.5-4.9)
[2018-05-07 07:52] LABS: ALBUMIN 3.4 g/dl (3.4-5.0); ALK PHOS 96 U/L (45-117); ANION GAP 6 MMOL/L (8-16); BILIRUBIN,TOTAL 1.2 mg/dL (0.2-1); BLOOD UREA NITROGEN 12 mg/dL (7-18); CALCIUM 8.7 mg/dL (8.5-10.1); CHLORIDE 110 mmol/L (98-107); CO2 25 mmol/L (21-32); GLUCOSE,RANDOM 121 mg/dL (74-106); INR 1.04 (0.83-1.09); POTASSIUM 4.1 mmol/L (3.5-5.1); PROTHROMBIN TIME (PATIENT) 12.3 SEC (9.7-13.0); SGOT/AST 21 U/L (15-37); SGPT/ALT 37 U/L (13-61); SODIUM 141 mmol/L (136-145); TOT PROT 6.2 g/dl (6.4-8.2)
[2018-05-07 07:55] LABS: ACTIVATED PTT 29.9 SECONDS (25.2-36.5)
[2018-05-07 07:56] LABS: BASO % 0.4 % (0-2.0); EOS % 1.4 % (0-4.5); HEMATOCRIT 40.3 % (32.4-45.2); HEMOGLOBIN 13.2 GM/dL (10.7-15.3); LYMPH % 33.3 % (8-40); MCH 27.7 pg (25.7-33.7); MCHC 32.8 g/dl (32.0-36.0); MEAN CELL VOLUME 84.4 fl (80-96); MONO % 7.6 % (3.8-10.2); NEUT % 57.3 % (42.8-82.8); PLATELET COUNT 240 K/MM3 (134-434); RBC 4.78 M/mm3 (3.60-5.2); RDW 13.7 % (11.6-15.6); WHITE BLOOD COUNT 8.4 K/mm3 (4.0-10.0)
[2018-05-07] MEDS ORDERED: CEFTRIAXONE 1 GM in DEXTROSE 5%-WATER - 50 ML IVPB SCH (10:00)
--- NOTE | 2018-05-07 10:46 | EKG ---
Test Reason : Blood Pressure : / mmHG Vent. Rate : 071 BPM Atrial Rate : 071 BPM P-R Int : 180 ms QRS Dur : 100 ms QT Int : 434 ms P-R-T Axes : 060 029 063 degrees QTc Int : 471 ms NORMAL SINUS RHYTHM NORMAL ECG WHEN COMPARED WITH ECG OF 10-NOV-2000 15:15, NO SIGNIFICANT CHANGE WAS FOUND Confirmed by EDENILSON JARA MD ([id number]) on 05/07/2018 10:46:31 AM Referred By: Confirmed By:EDENILSON JARA MD
[2018-05-07] MEDS ORDERED: cefTRIAXone SODIUM 1 GM VIAL ONE (11:36)
[2018-05-07] MEDS ORDERED: DEXTROSE 5%-WATER - 50 ML IVPB ONE (11:36)
[2018-05-07] MEDS: HYDROCHLOROTHIAZIDE 12.5 MG CAPSULE (FP) PO SCH (11:41)
[2018-05-07] MEDS: NAPH,MB-DB/K PH,MBDB POWDER PACKET PO SCH (11:41)
[2018-05-07] MEDS: SODIUM CHLORIDE 1,000 ML IV SCH (11:42)
[2018-05-07] MEDS: ATENOLOL 50 MG TABLET (FP) PO SCH ×2 (11:50→12:36)
[2018-05-07 15:45] VITALS: BMI 36.2
[2018-05-07] MEDS ORDERED: FLU VACCINE QUAD 60 MCG/0.5 ML (MDV 18-19) IM ONE (16:00)
--- NOTE | 2018-05-07 16:02 | PN ---
Physical Exam: SUBJECTIVE: Patient seen and examined this morning at bedside. Patient describes a crampy pain that came on after eating fatty foods. She also endorses a diffuse belly discomfort worst at the umbilicus but is tolerable. Patient has been made aware of the obstruction and says she will discuss surgery with her family. OBJECTIVE: Vital Signs Period Temp Pulse Resp BP Sys/Pratt Pulse Ox Last 24 Hr 97.5 F-99.2 F 66-89 16-20 130-179/57-77 98-99 GENERAL: A&Ox3, NAD HEAD: NCAT EYES: PERRL, EOMI ENT: Moist mucous membranes. NECK: No JVD LUNGS: CTAB HEART: RRR, S1, S2 without murmur ABDOMEN: Obese, Soft, Mild Tenderness to palpation in the MidEpigastric and RUQ with deep palpation, nondistended, + bowel sounds, no guarding, Positive [place]is[place] sign EXTREMITIES: 2+ pulses, no edema. NEUROLOGICAL: Cranial nerves II through XII grossly intact. Normal speech. SKIN: Warm, dry Laboratory Results - last 24 hr 05/06/18 05/06/18 05/06/18 17:24 17:40 17:40 WBC 7.0 RBC 5.02 Hgb 14.1 Hct 42.4 MCV 84.5 MCH 28.0 MCHC 33.2 RDW 13.8 Plt Count 260 MPV 9.3 Absolute Neuts (auto) 4.8 Neutrophils % 68.5 Lymphocytes % 25.7 Monocytes % 4.8 Eosinophils % 0.6 Basophils % 0.4 Nucleated RBC % 0 PT with INR INR PTT (Actin FS) Sodium 136 Potassium 5.1 Chloride 103 Carbon Dioxide 26 Anion Gap 8 BUN 19 H Creatinine 1.1 Creat Clearance w eGFR 49.25 Random Glucose 166 H Hemoglobin A1c % Lactic Acid Calcium 8.8 Phosphorus Magnesium Total Bilirubin 1.2 H AST 33 ALT 43 Alkaline Phosphatase 100 Troponin I < 0.02 Total Protein 6.8 Albumin 3.8 Lipase 99 Urine Color Urine Appearance Urine pH Ur Specific [place] Urine Protein Urine Glucose (UA) Urine Ketones Urine Blood Urine Nitrite Urine Bilirubin Urine Urobilinogen Ur Leukocyte Esterase Urine WBC (Auto) Urine RBC (Auto) Ur Epithelial Cells Urine Bacteria Urine Mucus Blood Type Antibody Screen 05/06/18 05/06/18 05/06/18 17:40 18:45 19:28 WBC RBC Hgb Hct MCV MCH MCHC RDW Plt Count MPV Absolute Neuts (auto) Neutrophils % Lymphocytes % Monocytes % Eosinophils % Basophils % Nucleated RBC % PT with INR INR PTT (Actin FS) Sodium Potassium Chloride Carbon Dioxide Anion Gap BUN Creatinine Creat Clearance w eGFR Random Glucose Hemoglobin A1c % Lactic Acid 2.2 H* 2.2 H* Calcium Phosphorus Magnesium Total Bilirubin AST ALT Alkaline Phosphatase Troponin I Total Protein Albumin Lipase Urine Color Ltyellow Urine Appearance Clear Urine pH 7.0 Ur Specific [place] 1.013 Urine Protein 1+ H Urine Glucose (UA) 1+ H Urine Ketones Negative Urine Blood Negative Urine Nitrite Negative Urine Bilirubin Negative Urine Urobilinogen Negative Ur Leukocyte Esterase 3+ H Urine WBC (Auto) 18 Urine RBC (Auto) 4 Ur Epithelial Cells Few Urine Bacteria Rare Urine Mucus Rare Blood Type Antibody Screen 05/07/18 05/07/18 05/07/18 00:12 00:12 06:15 WBC RBC Hgb Hct MCV MCH MCHC RDW Plt Count MPV Absolute Neuts (auto) Neutrophils % Lymphocytes % Monocytes % Eosinophils % Basophils % Nucleated RBC % PT with INR INR PTT (Actin FS) Sodium 141 Potassium 4.1 Chloride 110 H Carbon Dioxide 25 Anion Gap 6 L BUN 12 Creatinine 1.0 Creat Clearance w eGFR 54.97 Random Glucose 121 H Hemoglobin A1c % Lactic Acid 1.5 Calcium 8.7 Phosphorus Magnesium Total Bilirubin 1.2 H AST 21 ALT 37 Alkaline Phosphatase 96 Troponin I < 0.02 Total Protein 6.2 L Albumin 3.4 Lipase Urine Color Urine Appearance Urine pH Ur Specific [place] Urine Protein Urine Glucose (UA) Urine Ketones Urine Blood Urine Nitrite Urine Bilirubin Urine Urobilinogen Ur Leukocyte Esterase Urine WBC (Auto) Urine RBC (Auto) Ur Epithelial Cells Urine Bacteria Urine Mucus Blood Type Antibody Screen 05/07/18 05/07/18 05/07/18 06:15 06:15 06:15 WBC 8.4 RBC 4.78 Hgb 13.2 Hct 40.3 MCV 84.4 MCH 27.7 MCHC 32.8 RDW 13.7 Plt Count 240 MPV 9.0 Absolute Neuts (auto) 4.8 Neutrophils % 57.3 Lymphocytes % 33.3 D Monocytes % 7.6 Eosinophils % 1.4 D Basophils % 0.4 Nucleated RBC % 0 PT with INR 12.30 INR 1.04 PTT (Actin FS) 29.9 Sodium Potassium Chloride Carbon Dioxide Anion Gap BUN Creatinine Creat Clearance w eGFR Random Glucose Hemoglobin A1c % Lactic Acid Calcium Phosphorus 2.1 L Magnesium 2.3 Total Bilirubin AST ALT Alkaline Phosphatase Troponin I Total Protein Albumin Lipase Urine Color Urine Appearance Urine pH Ur Specific [place] Urine Protein Urine Glucose (UA) Urine Ketones Urine Blood Urine Nitrite Urine Bilirubin Urine Urobilinogen Ur Leukocyte Esterase Urine WBC (Auto) Urine RBC (Auto) Ur Epithelial Cells Urine Bacteria Urine Mucus Blood Type Antibody Screen 05/07/18 05/07/18 05/07/18 06:15 06:15 11:40 WBC RBC Hgb Hct MCV MCH MCHC RDW Plt Count MPV Absolute Neuts (auto) Neutrophils % Lymphocytes % Monocytes % Eosinophils % Basophils % Nucleated RBC % PT with INR INR PTT (Actin FS) Sodium Potassium Chloride Carbon Dioxide Anion Gap BUN Creatinine Creat Clearance w eGFR Random Glucose Hemoglobin A1c % 6.8 H Lactic Acid Calcium Phosphorus Magnesium Total Bilirubin AST ALT Alkaline Phosphatase Troponin I Total Protein Albumin Lipase Urine Color Urine Appearance Urine pH Ur Specific [place] Urine Protein Urine Glucose (UA) Urine Ketones Urine Blood Urine Nitrite Urine Bilirubin Urine Urobilinogen Ur Leukocyte Esterase Urine WBC (Auto) Urine RBC (Auto) Ur Epithelial Cells Urine Bacteria Urine Mucus Blood Type B POSITIVE B POSITIVE Antibody Screen Negative Active Medications Acetaminophen (Ofirmev Injection -) 1,000 mg IVPB Q6H PRN PRN Reason: PAIN LEVEL 1-5 Amlodipine Besylate (Norvasc -) 5 mg PO HS [facility]ISTA Last Admin: 05/06/18 23:00 Dose: Not Given Atenolol (Tenormin -) 50 mg PO DAILY [facility] Last Admin: 05/07/18 12:36 Dose: 50 mg Hydrochlorothiazide (Hctz -) 12.5 mg PO DAILY [facility] Last Admin: 05/07/18 11:41 Dose: 12.5 mg Sodium Chloride (Normal Saline -) 1,000 mls @ 100 mls/hr IV ASDIR [facility] Last Admin: 05/07/18 11:42 Dose: Not Given Ceftriaxone Sodium 1 gm/ (Dextrose) 50 mls @ 100 mls/hr IVPB DAILY [facility]A; Protocol Last Admin: 05/07/18 11:41 Dose: 100 mls/hr Cefoxitin Sodium 1 gm/ (Dextrose) 100 mls @ 200 mls/hr IVPB Q6H-IV [facility]; Protocol Potassium Phos/Sodium Phos (Phos-Nak Packet -) 1 packet PO DAILY [facility] Last Admin: 05/07/18 11:41 Dose: 1 packet IMAGING: -EKG: NORMAL SINUS RHYTHM, VR 71, QTc 471 -CXR: No acute chest pathology. -Abdominal US: Multiple small gallstones layering posteriorly without sonographic evidence of acute cholecystitis. Slightly coarse echotexture of the liver suggestive of mild fatty infiltration. -HIDA Scan: No filling of the gallbladder after 2 hours of imaging suggestive of cystic duct obstruction and acute cholecystitis in the right clinical setting. ASSESSMENT/PLAN: 68 y/o F with PMHx of HTN and MVP presents with epigastric abdominal pain and is found to have acute cholecystitis #MidEpigastric Abdominal Pain -Likely due to Acute Cholecystitis; Less likely ACS however will R/O -Abdominal US and HIDA scan noted above -Surgery (Dr. Barnett) consulted, Appreciate Rec's -IV NS @ 100 mLs/ hour -Pain control with Ofirmev -NPO after midnight for possible Lap [place]a tmrw -Trop < 0.02 x 2, EKG Noted above -Lactic acidosis resolved #Positive Urinalysis -UA: 3+ LE, 18 WBC, 4 RBC; However patient ASx -ID (Dr. Miles) Consulted -Completed course of Ceftriaxone (05/06-05/07) -Started on Cefoxitin (05/07) #Hx of HTN -Home dose HCTZ decreased to 12.5mg Daily -Continue Atenolol, Started on Amlodipine #DM -BGMs, ISS ACHS -A1c 6.8% #FEN -IV NS @ 100mls/hr -Replete Phos -NPO after midnight for possible OR Tmrw #PPx -DVT: SCDs; AC Held for possible surgical procedure Dispo: Possible OR Tmrw Visit type - Emergency Visit Emergency Visit: Yes ED Registration Date: 05/06/18 Care time: The patient presented to the Emergency Department on the above date and was hospitalized for further evaluation of their emergent condition. - New Patient This patient is new to me today: Yes Date on this admission: 05/07/18 - Critical Care Critical Care patient: No - Discharge Referral Referred to [facility] No
[2018-05-07] MEDS: ACETAMINOPHEN 1000 MG/100 ML VIAL (NON FORMULARY) IVPB PRN (16:42)
--- NOTE | 2018-05-07 16:48 | PN ---
Progress Note (short form) - Note Progress Note: ID Consult dictated Acute cholecystitis Obtain BC Empiric cefoxitin
[2018-05-07] MEDS: CEFOXITIN SODIUM 1 GM in DEXTROSE 5%-WATER - 100 ML IVPB SCH ×2 (17:22→20:04)
[2018-05-07] MEDS: INSULIN SLIDING SCALE (NOVOLOG) 1 VIAL SQ SCH ×2 (17:30→21:21)
--- NOTE | 2018-05-07 17:46 | CONS ---
DATE OF CONSULTATION: DATE OF DICTATION: 05/07/2018 INFECTIOUS DISEASE CONSULTATION HISTORY OF PRESENT ILLNESS: The patient is a 68-year-old female who was evaluated for acute cholecystitis. The patient states she was in [place] on MondayMay 05. She developed postprandial abdominal pain after consuming a high fat content meal. Patient described bloating and gas pain in the epigastrium and right upper quadrant. She subsequently developed vomiting. Patient had attributed her symptoms to food poisoning. She took Mylanta with improvement, the pain became progressively worse, prompting her to go to the emergency room. In the emergency room, a sonogram revealed multiple gallstones, however no evidence of acute cholecystitis. The HIDA scan was performed, and the gallbladder was not visualized after 2 hours. Patient reports a similar episode earlier this year which resolved with Mylanta. She had some loose bowel movements prior to admission, however has had no bowel movement today. She denies any associated fever or chills. PAST MEDICAL HISTORY: Positive for hypertension and mitral valve prolapse. ALLERGIES: CODEINE. MEDICATION: Atenolol and hydrochlorothiazide. SOCIAL HISTORY: She is retired. 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 She denies tobacco, alcohol, or illicit drug use. LABORATORY DATA: White count 8.4, hematocrit 40.3, platelet count 240, BUN 12, creatinine 1.0. Urinalysis 18 white cells, lactic acid 2.2. Liver enzymes normal. Lipase 99. PHYSICAL EXAMINATION: General: She is out of bed to chair. She is in no acute distress. Vital signs: Temperature 98.9, blood pressure 153/63, pulse 86 regular, respirations 20 per minute. HEENT: Sclerae anicteric. Cardiovascular: Heart sounds S1, S2. Lungs: Clear. Abdomen: Soft. There is epigastric tenderness and slight right upper quadrant tenderness to deep palpation. Extremities: 1+ edema. IMPRESSION: 1. Acute cholecystitis. 2. Lactic acidosis rule out sepsis secondary to acute cholecystitis. Obtain blood cultures, empiric coverage of biliary tract pathogens with 1 g IV piggyback every 8 hours. Surgical followup. Await culture results. Will follow. Thank you for the kind referral. JOE GARBER M.D. [id number]
--- NOTE | 2018-05-07 19:54 | PN ---
Teaching Attending Note Name of Resident: Celestina Chatman ATTENDING PHYSICIAN STATEMENT I saw and evaluated the patient. I reviewed the resident's note and discussed the case with the resident. I agree with the resident's findings and plan as documented. SUBJECTIVE: Patient is comfortable with no acute distress, no nausea or vomiting. OBJECTIVE: Vital Signs Temperature 98.4 F 05/07/18 16:30 Pulse Rate 84 05/07/18 16:30 Respiratory Rate 20 05/07/18 16:30 Blood Pressure 125/65 05/07/18 16:30 O2 Sat by Pulse Oximetry (%) 99 05/07/18 09:00 GENERAL: -[place] female, appears state age. Awake, alert, and fully oriented, NAD. HEAD: Normal with no signs of trauma. EYES: Pupils equal, round and reactive to light, EOMI, sclera anicteric, conjunctiva clear. EARS, NOSE, THROAT: Ears normal, oropharynx clear without exudates. Moist mucous membranes. NECK: Normal range of motion, supple , JVD, or masses. LUNGS: Breath sounds equal, CTA BL. No wheezes, and no crackles. No accessory muscle use. HEART: RRR, normal S1 and S2 positive ABDOMEN: soft, mild tenderness to deep palpation. No guarding, no rebound tenderness. MUSCULOSKELETAL: No CVA tenderness. EXTREMITIES: 2+ radial pulses b/l, warm, well-perfused. NEUROLOGICAL: Cranial nerves II-XII intact. Normal speech. PSYCHIATRIC: Cooperative. Good eye contact. SKIN: Warm, dry, no rashes or lesions noted, normal capillary refill. CBCD WBC 8.4 K/mm3 (4.0-10.0) 05/07/18 06:15 RBC 4.78 M/mm3 (3.60-5.2) 05/07/18 06:15 Hgb 13.2 GM/dL (10.7-15.3) 05/07/18 06:15 Hct 40.3 % (32.4-45.2) 05/07/18 06:15 MCV 84.4 fl (80-96) 05/07/18 06:15 MCHC 32.8 g/dl (32.0-36.0) 05/07/18 06:15 RDW 13.7 % (11.6-15.6) 05/07/18 06:15 Plt Count 240 K/MM3 (134-434) 05/07/18 06:15 MPV 9.0 fl (7.5-11.1) 05/07/18 06:15 CMP Sodium 141 mmol/L (136-145) 05/07/18 06:15 Potassium 4.1 mmol/L (3.5-5.1) 05/07/18 06:15 Chloride 110 mmol/L (98-107) H 05/07/18 06:15 Carbon Dioxide 25 mmol/L (21-32) 05/07/18 06:15 Anion Gap 6 MMOL/L (8-16) L 05/07/18 06:15 BUN 12 mg/dL (7-18) 05/07/18 06:15 Creatinine 1.0 mg/dL (0.55-1.3) 05/07/18 06:15 Creat Clearance w eGFR 54.97 (>60) 05/07/18 06:15 Random Glucose 121 mg/dL (74-106) H 05/07/18 06:15 Calcium 8.7 mg/dL (8.5-10.1) 05/07/18 06:15 Total Bilirubin 1.2 mg/dL (0.2-1) H 05/07/18 06:15 AST 21 U/L (15-37) 05/07/18 06:15 ALT 37 U/L (13-61) 05/07/18 06:15 Alkaline Phosphatase 96 U/L (45-117) 05/07/18 06:15 Total Protein 6.2 g/dl (6.4-8.2) L 05/07/18 06:15 Albumin 3.4 g/dl (3.4-5.0) 05/07/18 06:15 CARDIAC ENZYMES Troponin I < 0.02 ng/ml (0.00-0.05) 05/07/18 00:12 Current Medications Generic Name Dose Route Start Last Admin Trade Name Freq PRN Reason Stop Dose Admin Acetaminophen 1,000 mg 05/07/18 01:00 05/07/18 16:42 Ofirmev Injection - IVPB 1,000 mg Q6H PRN Administration PAIN LEVEL 1-5 Amlodipine Besylate 5 mg 05/06/18 22:00 05/06/18 23:00 Norvasc - PO Not Given HS [facility] Atenolol 50 mg 05/07/18 10:00 05/07/18 12:36 Tenormin - PO 50 mg DAILY [facility] Administration Hydrochlorothiazide 12.5 mg 05/07/18 10:00 05/07/18 11:41 Hctz - PO 12.5 mg DAILY [facility] Administration Sodium Chloride 1,000 mls @ 100 mls/hr 05/06/18 21:45 05/07/18 11:42 Normal Saline - IV Not Given ASDIR [facility] Cefoxitin Sodium 1 gm/ 100 mls @ 200 mls/hr 05/07/18 15:45 05/07/18 17:22 Dextrose IVPB 200 mls/hr Q6H-IV [facility] Administration Protocol Insulin Aspart 1 vial 05/07/18 16:30 05/07/18 17:30 Novolog Vial Sliding Scale - SQ Not Given ACHS [facility] Protocol Potassium Phos/Sodium Phos 1 packet 05/07/18 10:00 05/07/18 11:41 Phos-Nak Packet - PO 1 packet DAILY [facility] Administration Home Medications Medication Instructions Recorded Atenolol [Tenormin -] 50 mg PO DAILY 05/06/18 Hydrochlorothiazide 25 mg PO DAILY 05/06/18 -EKG: NORMAL SINUS RHYTHM, VR 71, QTc 471 -CXR: No acute chest pathology. -Abdominal US: Multiple small gallstones layering posteriorly without sonographic evidence of acute cholecystitis. Slightly coarse echotexture of the liver suggestive of mild fatty infiltration. -HIDA Scan: No filling of the gallbladder after 2 hours of imaging suggestive of cystic duct obstruction and acute cholecystitis in the right clinical setting. ASSESSMENT AND PLAN: Patient is a 68 y/o F with PMHx of HTN and MVP presents with epigastric abdominal pain and is found to have acute cholecystitis. # Acute Cholecystitis as per HIDA scan with cystic duct obstruction. Patient will go for Surgery in am by . On IV antibiotic HIDA: acute cholecystitis, with cystic duct obstruction. # UTI asymptomatic : ON IV antibiotic continue: UA: 3+ LE, 18 WBC, 4 RBC: However patient ASx. ID on the case, on Cefotixin 1gm #Hx of HTN: on atenolol, Amlodipine, tenormin #DM : BGMs, ISS ACHS; A1c 6.8% DVT Px: SCds
[2018-05-07] MEDS ORDERED: PT OWN MED DRAWER 7, Y5N ONE (19:59)
[2018-05-07] MEDS: amLODIPine BESYLATE 5 MG TABLET (FP) PO SCH (21:20)
[2018-05-08] MEDS: SODIUM CHLORIDE 1,000 ML IV SCH ×2 (03:16→15:14)
[2018-05-08] MEDS: CEFOXITIN SODIUM 1 GM in DEXTROSE 5%-WATER - 100 ML IVPB SCH ×3 (03:16→15:14)
[2018-05-08] MEDS: ACETAMINOPHEN 1000 MG/100 ML VIAL (NON FORMULARY) IVPB PRN (03:35)
--- NOTE | 2018-05-08 04:58 | PN ---
Progress Note, Physician Chief Complaint: abdominal pain History of Present Illness: 68yo female PMH obesity, HTN and MVP presenting to ED with complaints of abdominal pain that started last night. [place] in [place] and had [employer] food. Shenhas been stable but the pain in the right upper quadrant has persisted. HIDA was positive. - Current Medication List Current Medications: Active Medications Acetaminophen (Ofirmev Injection -) 1,000 mg IVPB Q6H PRN PRN Reason: PAIN LEVEL 1-5 Last Admin: 05/08/18 03:35 Dose: 1,000 mg Amlodipine Besylate (Norvasc -) 5 mg PO HS [facility] Last Admin: 05/07/18 21:20 Dose: 5 mg Atenolol (Tenormin -) 50 mg PO DAILY [facility] Last Admin: 05/07/18 12:36 Dose: 50 mg Hydrochlorothiazide (Hctz -) 12.5 mg PO DAILY [facility] Last Admin: 05/07/18 11:41 Dose: 12.5 mg Sodium Chloride (Normal Saline -) 1,000 mls @ 100 mls/hr IV ASDIR [facility] Last Admin: 05/08/18 03:16 Dose: 100 mls/hr Cefoxitin Sodium 1 gm/ (Dextrose) 100 mls @ 200 mls/hr IVPB Q6H-IV [facility]; Protocol Last Admin: 05/08/18 03:16 Dose: 200 mls/hr Insulin Aspart (Novolog Vial Sliding Scale -) 1 vial SQ ACHS [facility]; Protocol Last Admin: 05/07/18 21:21 Dose: Not Given Potassium Phos/Sodium Phos (Phos-Nak Packet -) 1 packet PO DAILY [facility] Last Admin: 05/07/18 11:41 Dose: 1 packet - Objective Vital Signs: Vital Signs Temperature 97.9 F 05/07/18 21:00 Pulse Rate 73 05/07/18 21:00 Respiratory Rate 20 05/07/18 21:00 Blood Pressure 134/74 05/07/18 21:00 O2 Sat by Pulse Oximetry (%) 99 05/07/18 21:00 Vital Signs Period Temp Pulse Resp BP Sys/Pratt Pulse Ox Last 24 Hr 97.6 F-99.5 F 77-95 14-20 133-168/63-84 94-98 Constitutional: Yes: No Distress, Calm, Obese Eyes: Yes: Conjunctiva Clear, EOM Intact HENT: Yes: Atraumatic, Normocephalic Neck: Yes: Supple, Trachea Midline Cardiovascular: Yes: Regular Rate and Rhythm, S1, S2 Respiratory: Yes: Regular, CTA Bilaterally Gastrointestinal: Yes: Normal Bowel Sounds, Soft, Tenderness (RUQ and = murphys) , Tenderness, Epigastrium. No: Tenderness, Rebound ...Rectal Exam: Yes: Deferred Genitourinary: No: CVA Tenderness - Left, CVA Tenderness - Right Extremities: No: Cool, Cyanosis Edema: No Peripheral Pulses WNL: Yes Integumentary: No: Jaundice, Rash, Tattoos Wound/Incision: Yes: Clean/Dry, Well Approximated Neurological: Yes: Alert, Oriented Psychiatric: Yes: Alert, Oriented Labs: CBC, BMP 05/07/18 06:15 05/07/18 06:15 INR, PTT INR 1.04 (0.83-1.09) 05/07/18 06:15 Problem List - Problems (1) Calculus of gallbladder and bile duct with cholecystitis Assessment/Plan: 68 yo female PMH obesity and HTN presented with right upper quadrant abdominal pain now confirmed acute cholecystitis NPO and IVF hydration adequate analgesia repeat labs in AM Discussed with patient risks, benefits and alternatives of laparoscopic possible open cholecystectomy, including but not limited to bleeding, infection , injury to adjacent structures, leak or injury, intraabdominal abscess, incisional hernia, need for further procedures, ; alternatives include antibiotics, delayed or no surgery - risks of this include failure of nonoperative therapy, sepsis, recurrence, . patient desires to proceed with operation - will take to OR for above. Informed consent signed for same. Code(s): K80.60 - CALCULUS OF GB AND BILE DUCT W CHOLECYST, UNSP, W/O OBST Qualifiers: Cholecystitis acuity: acute and chronic Biliary obstruction: without biliary obstruction Qualified Code(s): K80.66 - Calculus of gallbladder and bile duct with acute and chronic cholecystitis without obstruction (2) Obesity (BMI 30-39.9) Code(s): E66.9 - OBESITY, UNSPECIFIED (3) HTN (hypertension) Code(s): I10 - ESSENTIAL (PRIMARY) HYPERTENSION Qualifiers: Hypertension type: essential hypertension Qualified Code(s): I10 - Essential (primary) hypertension (4) Biliary colic symptom Code(s): K80.50 - CALCULUS OF BILE DUCT W/O CHOLANGITIS OR CHOLECYST W/O OBST
[2018-05-08] MEDS: INSULIN SLIDING SCALE (NOVOLOG) 1 VIAL SQ SCH ×3 (06:02→17:24)
[2018-05-08 07:47] LABS: BASO % 0.5 % (0-2.0); HEMATOCRIT 38.1 % (32.4-45.2); HEMOGLOBIN 12.5 GM/dL (10.7-15.3); LYMPH % 31.1 % (8-40); MCH 27.6 pg (25.7-33.7); MCHC 32.7 g/dl (32.0-36.0); MEAN CELL VOLUME 84.3 fl (80-96); MEAN PLT VOLUME 9.2 fl (7.5-11.1); MONO % 7.4 % (3.8-10.2); PLATELET COUNT 216 K/MM3 (134-434); RBC 4.52 M/mm3 (3.60-5.2); RDW 13.6 % (11.6-15.6); WHITE BLOOD COUNT 10.3 K/mm3 (4.0-10.0)
--- NOTE | 2018-05-08 07:56 | CON.GI ---
Consult Consult Specialty:: GI - History of Present Illness Chief Complaint: cholecystitis History of Present Illness: 68 y/o F was doing well until 2 days [employer] when she developed epigastric pain which worsenned up to the time of presentation to the ER. In the Er abdominal ultrasound revealed inflamed Gallbladder. Patient was seen last evening. The abdominal pain has resolved. - Smoking History Smoking history: Never smoked Home Medications - Allergies Allergies/Adverse Reactions: Allergies Allergy/AdvReac Type Severity Reaction Status Date / Time codeine Allergy Verified 05/06/18 17:01 - Home Medications Home Medications: Ambulatory Orders Atenolol [Tenormin -] 50 mg PO DAILY 05/06/18 Hydrochlorothiazide 25 mg PO DAILY 05/06/18 Physical Exam-GI Vital Signs: Vital Signs Temperature 99.9 F H 05/08/18 06:00 Pulse Rate 93 H 05/08/18 06:00 Respiratory Rate 20 05/08/18 06:00 Blood Pressure 139/84 05/08/18 06:00 O2 Sat by Pulse Oximetry (%) 99 05/07/18 21:00 Labs: INR, PTT INR 1.04 (0.83-1.09) 05/07/18 06:15
[2018-05-08 08:22] LABS: ALBUMIN 3.1 g/dl (3.4-5.0); ALK PHOS 92 U/L (45-117); ANION GAP 9 MMOL/L (8-16); BILIRUBIN,TOTAL 1.7 mg/dL (0.2-1); BLOOD UREA NITROGEN 10 mg/dL (7-18); CALCIUM 8.5 mg/dL (8.5-10.1); CHLORIDE 107 mmol/L (98-107); CO2 24 mmol/L (21-32); CREATININE 1.1 mg/dL (0.55-1.3); GLUCOSE,RANDOM 101 mg/dL (74-106); MAGNESIUM 2.2 mg/dL (1.8-2.4); PHOSPHOROUS 3.5 mg/dL (2.5-4.9); POTASSIUM 3.8 mmol/L (3.5-5.1); SGOT/AST 28 U/L (15-37); SGPT/ALT 37 U/L (13-61); SODIUM 140 mmol/L (136-145); TOT PROT 5.7 g/dl (6.4-8.2)
[2018-05-08] MEDS: HYDROCHLOROTHIAZIDE 12.5 MG CAPSULE (FP) PO SCH (10:02)
[2018-05-08] MEDS: ATENOLOL 50 MG TABLET (FP) PO SCH (10:02)
[2018-05-08] MEDS: NAPH,MB-DB/K PH,MBDB POWDER PACKET PO SCH (10:02)
--- NOTE | 2018-05-08 15:03 | PN ---
Physical Exam: SUBJECTIVE: Patient seen and examined this morning at bedside. She is nervous for surgery but is not experiencing any pain at rest. Denies any fevers, chills , chest pain, SOB, nausea, vomiting, diarrhea, constipation. OBJECTIVE: Vital Signs Period Temp Pulse Resp BP Sys/Pratt Pulse Ox Last 24 Hr 97.9 F-99.9 F 73-93 16-20 125-154/63-84 99-99 GENERAL: A&Ox3, NAD HEAD: NCAT EYES: PERRL, EOMI ENT: Moist mucous membranes NECK: No JVD LUNGS: CTAB HEART: RRR, S1, S2 without murmur ABDOMEN: Obese, Soft, Tender to palpation in the MidEpigastrium and RUQ with deep palpation, nondistended, + bowel sounds, no guarding EXTREMITIES: 2+ pulses, no edema. NEUROLOGICAL: Cranial nerves II through XII grossly intact. Normal speech. SKIN: Warm, dry Laboratory Results - last 24 hr 05/08/18 05/08/18 05/08/18 06:30 06:45 06:45 WBC 10.3 H RBC 4.52 Hgb 12.5 Hct 38.1 MCV 84.3 MCH 27.6 MCHC 32.7 RDW 13.6 Plt Count 216 MPV 9.2 Absolute Neuts (auto) 6.2 Neutrophils % 60.0 Lymphocytes % 31.1 Monocytes % 7.4 Eosinophils % 1.0 Basophils % 0.5 Nucleated RBC % 0 Sodium 140 Potassium 3.8 Chloride 107 Carbon Dioxide 24 Anion Gap 9 BUN 10 Creatinine 1.1 Creat Clearance w eGFR 49.25 POC Glucometer Random Glucose 101 Calcium 8.5 Phosphorus 3.5 Magnesium 2.2 Total Bilirubin 1.7 H AST 28 ALT 37 Alkaline Phosphatase 92 Total Protein 5.7 L Albumin 3.1 L Blood Type B POSITIVE Antibody Screen Negative Active Medications Acetaminophen (Ofirmev Injection -) 1,000 mg IVPB Q6H PRN PRN Reason: PAIN LEVEL 1-5 Last Admin: 05/08/18 03:35 Dose: 1,000 mg Amlodipine Besylate (Norvasc -) 5 mg PO HS [facility] Last Admin: 05/07/18 21:20 Dose: 5 mg Atenolol (Tenormin -) 50 mg PO DAILY [facility] Last Admin: 05/08/18 10:02 Dose: 50 mg Hydrochlorothiazide (Hctz -) 12.5 mg PO DAILY [facility] Last Admin: 05/08/18 10:02 Dose: 12.5 mg Sodium Chloride (Normal Saline -) 1,000 mls @ 100 mls/hr IV ASDIR [facility] Last Admin: 05/08/18 03:16 Dose: 100 mls/hr Cefoxitin Sodium 1 gm/ (Dextrose) 100 mls @ 200 mls/hr IVPB Q6H-IV [facility]; Protocol Last Admin: 05/08/18 10:03 Dose: 200 mls/hr Insulin Aspart (Novolog Vial Sliding Scale -) 1 vial SQ ACHS [facility]; Protocol Last Admin: 05/08/18 12:30 Dose: Not Given Potassium Phos/Sodium Phos (Phos-Nak Packet -) 1 packet PO DAILY [facility] Last Admin: 05/08/18 10:02 Dose: 1 packet IMAGING: -EKG: NORMAL SINUS RHYTHM, VR 71, QTc 471 -CXR: No acute chest pathology. -Abdominal US: Multiple small gallstones layering posteriorly without sonographic evidence of acute cholecystitis. Slightly coarse echotexture of the liver suggestive of mild fatty infiltration. -HIDA Scan: No filling of the gallbladder after 2 hours of imaging suggestive of cystic duct obstruction and acute cholecystitis in the right clinical setting. ASSESSMENT/PLAN: 68 y/o F with PMHx of HTN and MVP presents with epigastric abdominal pain and is found to have acute cholecystitis #MidEpigastric Abdominal Pain -Likely due to Acute Cholecystitis; Less likely ACS however will R/O -Abdominal US and HIDA scan noted above -Surgery (Dr. Barnett) consulted, Appreciate Rec's, Surgery scheduled today -IV NS @ 100 mLs/ hour -Pain control with Ofirmev -NPO after midnight -Trop < 0.02 x 2, EKG Noted above -Lactic acidosis resolved -GI (Dr. Perez) Consulted, Appreciate Rec's #Positive Urinalysis -UA: 3+ LE, 18 WBC, 4 RBC; However patient ASx -ID (Dr. Miles) Consulted -Completed course of Ceftriaxone (05/06-05/07); Continue Cefoxitin (05/07) #Hx of HTN -Home dose HCTZ decreased to 12.5mg Daily -Continue Atenolol, Started on Amlodipine #DM -BGMs, ISS ACHS -A1c 6.8% #FEN -IV NS @ 100mls/hr -Replete Phos -NPO after midnight #PPx -DVT: SCDs; AC Held for surgical procedure Dispo: OR Today Visit type - Emergency Visit Emergency Visit: Yes ED Registration Date: 05/06/18 Care time: The patient presented to the Emergency Department on the above date and was hospitalized for further evaluation of their emergent condition. - New Patient This patient is new to me today: No - Critical Care Critical Care patient: No - Discharge Referral Referred to [facility] Med [facility] No
--- NOTE | 2018-05-08 19:44 | PN ---
Teaching Attending Note Name of Resident: Celestina Chatman ATTENDING PHYSICIAN STATEMENT I saw and evaluated the patient. I reviewed the resident's note and discussed the case with the resident. I agree with the resident's findings and plan as documented. SUBJECTIVE: Patient is comfortable with no acute distress. no fever or chills. OBJECTIVE: Vital Signs Temperature 99.4 F 05/08/18 15:21 Pulse Rate 82 05/08/18 15:21 Respiratory Rate 18 05/08/18 15:21 Blood Pressure 137/69 05/08/18 15:21 O2 Sat by Pulse Oximetry (%) 99 05/08/18 09:00 GENERAL: -[place] female, appears state age. Awake, alert, and fully oriented, NAD. HEAD: Normal with no signs of trauma. EYES: Pupils equal, round and reactive to light, EOMI, sclera anicteric, conjunctiva clear. EARS, NOSE, THROAT: Ears normal, oropharynx clear without exudates. Moist mucous membranes. NECK: Normal range of motion, supple , JVD, or masses. LUNGS: Breath sounds equal, CTA BL. No wheezes, and no crackles. No accessory muscle use. HEART: RRR, normal S1 and S2 positive ABDOMEN: soft, mild tenderness to deep palpation. No guarding, no rebound tenderness. MUSCULOSKELETAL: No CVA tenderness. EXTREMITIES: 2+ radial pulses b/l, warm, well-perfused. NEUROLOGICAL: Cranial nerves II-XII intact. Normal speech. PSYCHIATRIC: Cooperative. Good eye contact. SKIN: Warm, dry, no rashes or lesions noted, normal capillary refill. CBCD WBC 10.3 K/mm3 (4.0-10.0) H 05/08/18 06:45 RBC 4.52 M/mm3 (3.60-5.2) 05/08/18 06:45 Hgb 12.5 GM/dL (10.7-15.3) 05/08/18 06:45 Hct 38.1 % (32.4-45.2) 05/08/18 06:45 MCV 84.3 fl (80-96) 05/08/18 06:45 MCHC 32.7 g/dl (32.0-36.0) 05/08/18 06:45 RDW 13.6 % (11.6-15.6) 05/08/18 06:45 Plt Count 216 K/MM3 (134-434) 05/08/18 06:45 MPV 9.2 fl (7.5-11.1) 05/08/18 06:45 CMP Sodium 140 mmol/L (136-145) 05/08/18 06:30 Potassium 3.8 mmol/L (3.5-5.1) 05/08/18 06:30 Chloride 107 mmol/L (98-107) 05/08/18 06:30 Carbon Dioxide 24 mmol/L (21-32) 05/08/18 06:30 Anion Gap 9 MMOL/L (8-16) 05/08/18 06:30 BUN 10 mg/dL (7-18) 05/08/18 06:30 Creatinine 1.1 mg/dL (0.55-1.3) 05/08/18 06:30 Creat Clearance w eGFR 49.25 (>60) 05/08/18 06:30 Random Glucose 101 mg/dL (74-106) 05/08/18 06:30 Calcium 8.5 mg/dL (8.5-10.1) 05/08/18 06:30 Total Bilirubin 1.7 mg/dL (0.2-1) H 05/08/18 06:30 AST 28 U/L (15-37) 05/08/18 06:30 ALT 37 U/L (13-61) 05/08/18 06:30 Alkaline Phosphatase 92 U/L (45-117) 05/08/18 06:30 Total Protein 5.7 g/dl (6.4-8.2) L 05/08/18 06:30 Albumin 3.1 g/dl (3.4-5.0) L 05/08/18 06:30 CARDIAC ENZYMES Troponin I < 0.02 ng/ml (0.00-0.05) 05/07/18 00:12 Current Medications Generic Name Dose Route Start Last Admin Trade Name Freq PRN Reason Stop Dose Admin Acetaminophen 1,000 mg 05/07/18 01:00 05/08/18 03:35 Ofirmev Injection - IVPB 1,000 mg Q6H PRN Administration PAIN LEVEL 1-5 Amlodipine Besylate 5 mg 05/06/18 22:00 05/07/18 21:20 Norvasc - PO 5 mg HS CALISTA Administration Atenolol 50 mg 05/07/18 10:00 05/08/18 10:02 Tenormin - PO 50 mg DAILY [facility] Administration Hydrochlorothiazide 12.5 mg 05/07/18 10:00 05/08/18 10:02 Hctz - PO 12.5 mg DAILY [facility] Administration Sodium Chloride 1,000 mls @ 100 mls/hr 05/06/18 21:45 05/08/18 15:14 Normal Saline - IV 100 mls/hr ASDIR [facility] Administration Cefoxitin Sodium 1 gm/ 100 mls @ 200 mls/hr 05/07/18 15:45 05/08/18 15:14 Dextrose IVPB 200 mls/hr Q6H-IV [facility] Administration Protocol Insulin Aspart 1 vial 05/07/18 16:30 05/08/18 17:24 Novolog Vial Sliding Scale - SQ Not Given ACHS [facility] Protocol Potassium Phos/Sodium Phos 1 packet 05/07/18 10:00 05/08/18 10:02 Phos-Nak Packet - PO 1 packet DAILY [facility] Administration Home Medications Medication Instructions Recorded Atenolol [Tenormin -] 50 mg PO DAILY 05/06/18 Hydrochlorothiazide 25 mg PO DAILY 05/06/18 -EKG: NORMAL SINUS RHYTHM, VR 71, QTc 471 -CXR: No acute chest pathology. -Abdominal US: Multiple small gallstones layering posteriorly without sonographic evidence of acute cholecystitis. Slightly coarse echotexture of the liver suggestive of mild fatty infiltration. -HIDA Scan: No filling of the gallbladder after 2 hours of imaging suggestive of cystic duct obstruction and acute cholecystitis in the right clinical setting. ASSESSMENT AND PLAN: Patient is a 68 y/o F with PMHx of HTN and MVP presents with epigastric abdominal pain and is found to have acute cholecystitis. # Acute Cholecystitis as per HIDA scan with cystic duct obstruction. POD # 0 , . On IV antibiotic HIDA: acute cholecystitis, with cystic duct obstruction. # UTI asymptomatic : On IV antibiotic for cholecystitis which will cover ; UA: 3+ LE, 18 WBC, 4 RBC: However patient ASx. ID on the case, on Cefotixin 1gm #Hx of HTN: on atenolol, Amlodipine, tenormin #DM : BGMs, ISS ACHS; A1c 6.8% DVT Px: SCds
[2018-05-08] MEDS ORDERED: KETOROLAC TROMETHAMINE 30 MG/1 ML VIAL ONE (20:14)
[2018-05-08] MEDS ORDERED: fentaNYL CITRATE 250 MCG/5 ML VIAL ONE ×2 (20:14)
[2018-05-08] MEDS ORDERED: ROCURONIUM BROMIDE 50 MG/5 ML VIAL ONE (20:14)
[2018-05-08] MEDS ORDERED: SUCCINYLCHOLINE CHLORIDE 200 MG/10 ML VIAL ONE ×2 (20:14)
[2018-05-08] MEDS ORDERED: cefoTEtan DISODIUM 1 GM VIAL (RESTRICTED TO ID) IVPB ONE (20:36)
[2018-05-08] MEDS ORDERED: CEFOXITIN SODIUM 2 GM IVPB ONE (20:37)
[2018-05-08] MEDS ORDERED: NEOSTIGMINE METHYLSULFATE 0.5 MG/ML - 10 ML MDV ONE (21:06)
[2018-05-08] MEDS ORDERED: ONDANSETRON 4 MG/2 ML VIAL IVPUSH PRN (21:54)
[2018-05-08] MEDS ORDERED: PROMETHAZINE HCL 25 MG/1 ML VIAL IVPUSH PRN (21:54)
[2018-05-08] MEDS ORDERED: ACETAMINOPHEN 1000 MG/100 ML VIAL (NON FORMULARY) IVPB PRN ×2 (21:56→23:17)
--- NOTE | 2018-05-08 21:58 | OP ---
Operative Note - Note: Operative Date: 05/08/18 Pre-Operative Diagnosis: acute cholecystitis Operation: laparoscopic cholecystitis Findings: tense inflamed gallbladder. drained 50ml of green bile prior to dissection. critical view identified. all counts correct Post-Operative Diagnosis: Same as Pre-op Surgeon: Al Barnett Paediatric Thoracic Physician: Fabricio Camejo Anesthesiologist/DIRECTOR OF DEMENTIA OPERATIONS: Urbano Patel Anesthesia: General, Local (0.5% marcaine 20ml) Specimens Removed: gallbladder Estimated Blood Loss (mls): 10 Fluid Volume Replaced (mls): 1,300 Operative Report Dictated: Yes
[2018-05-08] MEDS ORDERED: PROMETHAZINE HCL 25 MG/1 ML VIAL IVPB PRN (21:59)
[2018-05-08] MEDS ORDERED: morphine SULFATE 4 MG/ML VIAL IVPUSH PRN (22:06)
[2018-05-08] MEDS ORDERED: ACETAMINOPHEN INJECTION 100 ML IVPB ONE (22:20)
[2018-05-09] MEDS ORDERED: CEFOXITIN SODIUM 2 GM in DEXTROSE 5%-WATER - 100 ML IVPB SCH (05:00)
[2018-05-09] MEDS ORDERED: PT OWN MED DRAWER 7, Y5N ONE ×3 (05:13→20:00)
[2018-05-09] MEDS: CEFOXITIN SODIUM 2 GM in DEXTROSE 5%-WATER - 100 ML IVPB SCH ×3 (05:35→20:09)
[2018-05-09] MEDS ORDERED: oxyCODONE HCL 5 MG TABLET PO PRN (08:48)
[2018-05-09 09:16] LABS: BASO % 0.4 % (0-2.0); EOS % 2.7 % (0-4.5); HEMATOCRIT 36.9 % (32.4-45.2); HEMOGLOBIN 12.1 GM/dL (10.7-15.3); LYMPH % 40.3 % (8-40); MCH 27.9 pg (25.7-33.7); MCHC 32.9 g/dl (32.0-36.0); MEAN PLT VOLUME 8.8 fl (7.5-11.1); MONO % 7.6 % (3.8-10.2); PLATELET COUNT 211 K/MM3 (134-434); RBC 4.34 M/mm3 (3.60-5.2); RDW 13.5 % (11.6-15.6); WHITE BLOOD COUNT 8.6 K/mm3 (4.0-10.0)
[2018-05-09] MEDS: SODIUM CHLORIDE 1,000 ML IV SCH ×3 (09:42→22:58)
[2018-05-09 09:43] LABS: ALBUMIN 2.8 g/dl (3.4-5.0); ALK PHOS 94 U/L (45-117); ANION GAP 9 MMOL/L (8-16); BILIRUBIN,TOTAL 1.5 mg/dL (0.2-1); BLOOD UREA NITROGEN 13 mg/dL (7-18); CHLORIDE 108 mmol/L (98-107); CO2 23 mmol/L (21-32); CREATININE 1.1 mg/dL (0.55-1.3); GLUCOSE,RANDOM 71 mg/dL (74-106); PHOSPHOROUS 3.3 mg/dL (2.5-4.9); POTASSIUM 3.6 mmol/L (3.5-5.1); SGOT/AST 43 U/L (15-37); SGPT/ALT 50 U/L (13-61); SODIUM 140 mmol/L (136-145); TOT PROT 5.5 g/dl (6.4-8.2)
[2018-05-09] MEDS: INSULIN SLIDING SCALE (NOVOLOG) 1 VIAL SQ SCH ×5 (09:44→21:19)
[2018-05-09] MEDS: HYDROCHLOROTHIAZIDE 12.5 MG CAPSULE (FP) PO SCH (09:44)
[2018-05-09] MEDS: NAPH,MB-DB/K PH,MBDB POWDER PACKET PO SCH (09:44)
[2018-05-09] MEDS: ATENOLOL 50 MG TABLET (FP) PO SCH (09:44)
[2018-05-09] MEDS: CEFOXITIN SODIUM 1 GM in DEXTROSE 5%-WATER - 100 ML IVPB SCH (10:28)
[2018-05-09] MEDS: amLODIPine BESYLATE 5 MG TABLET (FP) PO SCH (10:29)
--- NOTE | 2018-05-09 11:04 | PN ---
Progress Note, Physician Chief Complaint: abdominal pain History of Present Illness: 68yo female PMH obesity, HTN and MVP presenting to ED with complaints of abdominal pain that started last night. Pt said [place] was in [place] and had [employer] food. Shenhas been stable but the pain in the right upper quadrant has persisted. HIDA was positive. - Current Medication List Current Medications: Active Medications Acetaminophen (Ofirmev Injection -) 1,000 mg IVPB Q6H PRN PRN Reason: PAIN LEVEL 4 - 6 Last Admin: 05/09/18 06:24 Dose: 1,000 mg Amlodipine Besylate (Norvasc -) 5 mg PO HS CALISTA Atenolol (Tenormin -) 50 mg PO DAILY [facility] Last Admin: 05/09/18 09:44 Dose: 50 mg Hydrochlorothiazide (Hctz -) 12.5 mg PO DAILY [facility] Last Admin: 05/09/18 09:44 Dose: 12.5 mg Cefoxitin Sodium 2 gm/ (Dextrose) 100 mls @ 200 mls/hr IVPB Q8H [facility]; Protocol Stop: 05/10/18 04:59 Last Admin: 05/09/18 05:35 Dose: 200 mls/hr Sodium Chloride (Normal Saline -) 1,000 mls @ 100 mls/hr IV ASDIR [facility] Last Admin: 05/09/18 09:42 Dose: Not Given Insulin Aspart (Novolog Vial Sliding Scale -) 1 vial SQ ACHS [facility]; Protocol Last Admin: 05/09/18 09:44 Dose: Not Given Oxycodone HCl (Roxicodone -) 5 mg PO Q6H PRN PRN Reason: PAIN LEVEL 6-10 Potassium Phos/Sodium Phos (Phos-Nak Packet -) 1 packet PO DAILY [facility] Last Admin: 05/09/18 09:44 Dose: 1 packet - Objective Vital Signs: Vital Signs Temperature 97.6 F 05/09/18 09:48 Pulse Rate 77 05/09/18 09:48 Respiratory Rate 18 05/09/18 09:48 Blood Pressure 156/77 05/09/18 09:48 O2 Sat by Pulse Oximetry (%) 98 05/08/18 22:55 Vital Signs Period Temp Pulse Resp BP Sys/Pratt Pulse Ox Last 24 Hr 97.6 F-99.5 F 77-95 14-20 133-168/63-84 94-98 Constitutional: Yes: Well Nourished, No Distress, Calm, Obese Eyes: Yes: Conjunctiva Clear, EOM Intact HENT: Yes: Atraumatic, Normocephalic Neck: Yes: Supple, Trachea Midline Cardiovascular: Yes: Regular Rate and Rhythm, S1, S2 Respiratory: Yes: Regular, CTA Bilaterally Gastrointestinal: Yes: Normal Bowel Sounds, Soft, Tenderness (periumbilical incison, soaking). No: Tenderness, Epigastrium, Tenderness, Rebound ...Rectal Exam: Yes: Deferred Genitourinary: No: CVA Tenderness - Left, CVA Tenderness - Right Musculoskeletal: No: Muscle Pain, Muscle Weakness Extremities: No: Cool, Cyanosis Edema: No Peripheral Pulses: Left Radial: 2+, Right Radial: 2+, Left Doralis Pedis: 2+, Right Dorsalis Pedis: 2+ Integumentary: No: Jaundice, Rash, Tenting Neurological: Yes: Alert, Oriented Psychiatric: Yes: Alert, Oriented Labs: CBC, BMP 05/09/18 08:55 05/09/18 08:55 INR, PTT INR 1.04 (0.83-1.09) 05/07/18 06:15 Problem List - Problems (1) Calculus of gallbladder and bile duct with cholecystitis Assessment/Plan: 68 yo female PMH obesity and HTN presented with right upper quadrant abdominal pain now confirmed acute cholecystitis POD#1 s/p Laparoscopic cholecystectomy. There was some spilage of during dissection. She has some complaint of weakness and her dressing right abdomen was soaked. Will reasses in AM. continue IV antibiotics for 24 additional orders. Diet as tolerated adequate analgesia OOB and ambulate encourage IS Code(s): K80.60 - CALCULUS OF GB AND BILE DUCT W CHOLECYST, UNSP, W/O OBST Qualifiers: Cholecystitis acuity: acute and chronic Biliary obstruction: without biliary obstruction Qualified Code(s): K80.66 - Calculus of gallbladder and bile duct with acute and chronic cholecystitis without obstruction (2) Obesity (BMI 30-39.9) Code(s): E66.9 - OBESITY, UNSPECIFIED (3) HTN (hypertension) Code(s): I10 - ESSENTIAL (PRIMARY) HYPERTENSION Qualifiers: Hypertension type: essential hypertension Qualified Code(s): I10 - Essential (primary) hypertension (4) Biliary colic symptom Code(s): K80.50 - CALCULUS OF BILE DUCT W/O CHOLANGITIS OR CHOLECYST W/O OBST
[2018-05-09] MEDS ORDERED: ACETAMINOPHEN 325 MG TABLET (FP) PO PRN ×2 (14:34→15:14)
[2018-05-09] MEDS ORDERED: ONDANSETRON 4 MG TABLET PO PRN (16:14)
[2018-05-09] MEDS ORDERED: IBUPROFEN 400 MG TABLET (FP) PO PRN (16:18)
--- NOTE | 2018-05-09 16:18 | PN ---
Progress Note (short form) - Note Progress Note: Post op day#1.S/P Laproscopic cholecystectomy under [place] uneventful.Patient stable.No any anesthesia related problem.Patient DC from the anesthesia care.
--- NOTE | 2018-05-09 16:19 | PN ---
Physical Exam: SUBJECTIVE: Patient seen and examined this morning at bedside. Able to tolerate diet today. Ambulates within her room. Has not passed flatus yet and has feelings of not completely emptying her bladder. Denies any fevers, chills, chest pain, SOB, nausea, vomiting, diarrhea, constipation. OBJECTIVE: Vital Signs Period Temp Pulse Resp BP Sys/Pratt Pulse Ox Last 24 Hr 97.6 F-99.5 F 73-95 14-20 129-168/60-84 94-98 GENERAL: A&Ox3, NAD HEAD: NCAT EYES: PERRL, EOMI ENT: Moist mucous membranes NECK: No JVD LUNGS: CTAB HEART: RRR, S1, S2 without murmur ABDOMEN: Obese, Soft, Diffuse Tenderness to palpation worst at the incision sites, nondistended, + bowel sounds, no guarding. Incision sites covered with bandages that are clean, dry and intact without surrounding erythema or swelling. No active drainage noted. EXTREMITIES: 2+ pulses, no edema. NEUROLOGICAL: Cranial nerves II through XII grossly intact. Normal speech. SKIN: Warm, dry Laboratory Results - last 24 hr 05/08/18 05/09/18 05/09/18 22:41 06:26 08:55 WBC 8.6 RBC 4.34 Hgb 12.1 Hct 36.9 MCV 85.0 MCH 27.9 MCHC 32.9 RDW 13.5 Plt Count 211 MPV 8.8 Absolute Neuts (auto) 4.2 Neutrophils % 49.0 Lymphocytes % 40.3 H D Monocytes % 7.6 Eosinophils % 2.7 D Basophils % 0.4 Nucleated RBC % 0 Sodium Potassium Chloride Carbon Dioxide Anion Gap BUN Creatinine Creat Clearance w eGFR POC Glucometer 105 95 Random Glucose Calcium Phosphorus Magnesium Total Bilirubin AST ALT Alkaline Phosphatase Total Protein Albumin 05/09/18 05/09/18 08:55 12:33 WBC RBC Hgb Hct MCV MCH MCHC RDW Plt Count MPV Absolute Neuts (auto) Neutrophils % Lymphocytes % Monocytes % Eosinophils % Basophils % Nucleated RBC % Sodium 140 Potassium 3.6 Chloride 108 H Carbon Dioxide 23 Anion Gap 9 BUN 13 Creatinine 1.1 Creat Clearance w eGFR 49.25 POC Glucometer 113 Random Glucose 71 L Calcium 8.0 L Phosphorus 3.3 Magnesium 2.0 Total Bilirubin 1.5 H AST 43 H ALT 50 Alkaline Phosphatase 94 Total Protein 5.5 L Albumin 2.8 L Active Medications Acetaminophen (Tylenol -) 325 mg PO Q6H PRN PRN Reason: PAIN 1-5 Acetaminophen (Ofirmev Injection -) 1,000 mg IVPB Q6H PRN PRN Reason: PAIN LEVEL 4 - 6 Stop: 05/09/18 23:00 Amlodipine Besylate (Norvasc -) 5 mg PO HS [facility] Atenolol (Tenormin -) 50 mg PO DAILY [facility] Last Admin: 05/09/18 09:44 Dose: 50 mg Hydrochlorothiazide (Hctz -) 12.5 mg PO DAILY [facility] Last Admin: 05/09/18 09:44 Dose: 12.5 mg Cefoxitin Sodium 2 gm/ (Dextrose) 100 mls @ 200 mls/hr IVPB Q8H [facility]; Protocol Stop: 05/10/18 04:59 Last Admin: 05/09/18 15:21 Dose: 200 mls/hr Sodium Chloride (Normal Saline -) 1,000 mls @ 100 mls/hr IV ASDIR [facility] Last Admin: 05/09/18 09:42 Dose: Not Given Insulin Aspart (Novolog Vial Sliding Scale -) 1 vial SQ ACHS [facility]; Protocol Last Admin: 05/09/18 14:47 Dose: Not Given Oxycodone HCl (Roxicodone -) 5 mg PO Q6H PRN PRN Reason: PAIN LEVEL 6-10 Last Admin: 05/09/18 11:18 Dose: 5 mg Potassium Phos/Sodium Phos (Phos-Nak Packet -) 1 packet PO DAILY [facility] Last Admin: 05/09/18 09:44 Dose: 1 packet IMAGING: -EKG: NORMAL SINUS RHYTHM, VR 71, QTc 471 -CXR: No acute chest pathology. -Abdominal US: Multiple small gallstones layering posteriorly without sonographic evidence of acute cholecystitis. Slightly coarse echotexture of the liver suggestive of mild fatty infiltration. -HIDA Scan: No filling of the gallbladder after 2 hours of imaging suggestive of cystic duct obstruction and acute cholecystitis in the right clinical setting. ASSESSMENT/PLAN: 68 y/o F with PMHx of HTN and MVP presents with epigastric abdominal pain and is found to have acute cholecystitis #MidEpigastric Abdominal Pain -Likely due to Acute Cholecystitis S/P Laparoscopic Cholecystectomy POD#1 -Surgery (Dr. Barnett) consulted, Appreciate Rec's -IV NS @ 100 mLs/ hour -Pain control with Ofirmev -Continue ABx for additional 24 hours as per surgery -Incentive spirometer -OOB #Positive Urinalysis -UA: 3+ LE, 18 WBC, 4 RBC; However patient ASx -ID (Dr. Miles) Consulted -Completed course of Ceftriaxone (05/06-05/07); Continue Cefoxitin (05/07) -Bladder scans for urine retention #Hx of HTN -Home dose HCTZ decreased to 12.5mg Daily -Continue Atenolol, Started on Amlodipine #DM -BGMs, ISS ACHS -A1c 6.8% -Patient would like to discuss tx regimens with her PCP and does not want to start oral hypoglycemics upon discharge #FEN -IV NS @ 100mls/hr -Replete Phos -Regular diet #PPx -DVT: SCDs Dispo: D/C likely tmrw Visit type - Emergency Visit Emergency Visit: Yes ED Registration Date: 05/06/18 Care time: The patient presented to the Emergency Department on the above date and was hospitalized for further evaluation of their emergent condition. - New Patient This patient is new to me today: No - Critical Care Critical Care patient: No - Discharge Referral Referred to [facility] Med P.C.: No
[2018-05-09] MEDS: ACETAMINOPHEN 1000 MG/100 ML VIAL (NON FORMULARY) IVPB PRN ×2 (16:37→22:58)
--- NOTE | 2018-05-09 17:52 | PN ---
Teaching Attending Note Name of Resident: Celestina Chatman ATTENDING PHYSICIAN STATEMENT I saw and evaluated the patient. I reviewed the resident's note and discussed the case with the resident. I agree with the resident's findings and plan as documented. SUBJECTIVE: No fever or chills. minimal abd pain. did not pass gas yet. has a feeling of incomplete bladder emptying OBJECTIVE: NA d Cv : RRr Lungs: CTAB ext : no edema Abd: soft, dressings over surgical wounds. NL BS. ttp in RUQ nad romeo-umbilical area ASSESSMENT AND PLAN: 68 y/o lady withh/o HTN who presented with abd pain and was found to have acute cholecystitis 1- Acute cholecystitis s/p CCY yesterday with bile spillage as per d/w Dr. Moore. - need more IV abx . cont - watch for flatus - pain control . dc morphine. add oxy - bladder scans - encourage ambulation 2- HTN: cont current regimen 3- New onset DM . she was educated . metformin offered but she prefer to follow with her PCP for this issue . dc in am
[2018-05-09] MEDS ORDERED: INSULIN (NOVOLOG) ASPART 100 UNITS/ML 10ML VIAL ONE (19:59)
[2018-05-09] MEDS ORDERED: amLODIPine BESYLATE 5 MG TABLET (FP) PO SCH (22:00)
[2018-05-10] MEDS: INSULIN SLIDING SCALE (NOVOLOG) 1 VIAL SQ SCH ×2 (06:00→12:04)
[2018-05-10 07:26] LABS: BASO % 0.4 % (0-2.0); EOS % 5.7 % (0-4.5); HEMATOCRIT 38.4 % (32.4-45.2); HEMOGLOBIN 12.6 GM/dL (10.7-15.3); LYMPH % 38.8 % (8-40); MCH 27.5 pg (25.7-33.7); MCHC 32.7 g/dl (32.0-36.0); MEAN PLT VOLUME 9.2 fl (7.5-11.1); MONO % 6.4 % (3.8-10.2); NEUT % 48.7 % (42.8-82.8); PLATELET COUNT 238 K/MM3 (134-434); RBC 4.57 M/mm3 (3.60-5.2); RDW 13.6 % (11.6-15.6)
[2018-05-10 08:11] LABS: ANION GAP 9 MMOL/L (8-16); BLOOD UREA NITROGEN 11 mg/dL (7-18); CALCIUM 8.3 mg/dL (8.5-10.1); CHLORIDE 110 mmol/L (98-107); CO2 23 mmol/L (21-32); GLUCOSE,RANDOM 95 mg/dL (74-106); PHOSPHOROUS 2.8 mg/dL (2.5-4.9); SODIUM 142 mmol/L (136-145)
--- NOTE | 2018-05-10 08:12 | DS ---
Physical Exam: SUBJECTIVE: Patient seen and examined OBJECTIVE: Vital Signs Period Temp Pulse Resp BP Sys/Pratt Pulse Ox Last 24 Hr 97.6 F-98.5 F 67-84 18-20 129-171/60-98 98-98 PHYSICAL EXAM GENERAL: The patient is awake, alert, and fully oriented, in no acute distress. HEAD: Normal with no signs of trauma. EYES: PERRL, extraocular movements intact, sclera anicteric, conjunctiva clear. ENT: Ears normal, nares patent, oropharynx clear without exudates, moist mucous membranes. NECK: Trachea midline, full range of motion, supple. LUNGS: Breath sounds equal, clear to auscultation bilaterally, no wheezes, no crackles, no accessory muscle use. HEART: Regular rate and rhythm, S1, S2 without murmur, rub or gallop. ABDOMEN: Soft, nontender, nondistended, normoactive bowel sounds, no guarding, no rebound, no hepatosplenomegaly, no masses. EXTREMITIES: 2+ pulses, warm, well-perfused, no edema. NEUROLOGICAL: Cranial nerves II through XII grossly intact. Normal speech, gait not observed. PSYCH: Normal mood, normal affect. SKIN: Warm, dry, normal turgor, no rashes or lesions noted. LABS Laboratory Results - last 24 hr 05/09/18 05/09/18 05/09/18 08:55 08:55 12:33 WBC 8.6 RBC 4.34 Hgb 12.1 Hct 36.9 MCV 85.0 MCH 27.9 MCHC 32.9 RDW 13.5 Plt Count 211 MPV 8.8 Absolute Neuts (auto) 4.2 Neutrophils % 49.0 Lymphocytes % 40.3 H D Monocytes % 7.6 Eosinophils % 2.7 D Basophils % 0.4 Nucleated RBC % 0 Sodium 140 Potassium 3.6 Chloride 108 H Carbon Dioxide 23 Anion Gap 9 BUN 13 Creatinine 1.1 Creat Clearance w eGFR 49.25 POC Glucometer 113 Random Glucose 71 L Calcium 8.0 L Phosphorus 3.3 Magnesium 2.0 Total Bilirubin 1.5 H AST 43 H ALT 50 Alkaline Phosphatase 94 Total Protein 5.5 L Albumin 2.8 L 05/10/18 06:15 WBC RBC Hgb Hct MCV MCH MCHC RDW Plt Count MPV Absolute Neuts (auto) Neutrophils % Lymphocytes % Monocytes % Eosinophils % Basophils % Nucleated RBC % Sodium 142 Potassium 4.0 Chloride 110 H Carbon Dioxide 23 Anion Gap 9 BUN 11 Creatinine 1.0 Creat Clearance w eGFR 54.97 POC Glucometer Random Glucose 95 Calcium 8.3 L Phosphorus 2.8 Magnesium 2.0 Total Bilirubin AST ALT Alkaline Phosphatase Total Protein Albumin HOSPITAL COURSE: Date of Admission:05/06/18 Date of Discharge: 05/10/18 Discharge Summary Reason For Visit: ABDOMINAL PAIN Current Active Problems Abdominal pain (Acute) Biliary colic symptom (Acute) Calculus of gallbladder and bile duct with cholecystitis (Acute) Cholecystitis (Acute) Diabetes mellitus (Acute) S/P cholecystectomy (Acute) HTN (hypertension) (Chronic) Obesity (BMI 30-39.9) (Chronic) Condition: Improved - Instructions Diet, Activity, Other Instructions: You presented to the hospital with Mid-Epigastric abdominal pain and was diagnosed with acute cholecystitis and had a Laproscopic Cholecystectomy. Postoperative instructions: You had a laparoscopic cholecystectomy on [address] Al Barnett of [facility]. Activity: Resume your usual activities gradually, but no heavy exertion or lifting more than 10-15 pounds for 1 month. Remove dressings 48 hours after surgery; sticky tapes underneath will fall off by themselves. You may shower daily starting then, just pat the incision areas dry. No bath or swimming until skin incisions have healed. Eat lightly at first, but advance to your usual diet as tolerated. Pain: For pain, you may use and alternate Tylenol (acetaminophen) 1-2 pills and/ or ibuprofen 200 mg (1-3 pills) every 6 hours each as needed; this means that you can take one OR the other at 3-hour intervals. Do not take more than 4000mg of acetaminophen in a day. Take medications as prescribed or indicated on the labeling. Follow-up: Call Dr. Barnett' office at [phone] to make your postop appointment (Monday in approximately 2 weeks after surgery). Clinic is held in the [facility] on the first floor of [facility]. Call the office if you have: * increasing pain not responsive to pain medication * fever of 101F or higher * vomiting * unusual or increasing bleeding or drainage from wounds * increasing redness or swelling at wound sites * inability to urinate Also, see your primary medical doctor within 1-2 weeks. Medication changes: 1. HydroChloraThiaZide dose has been decreased to 12.5mg daily 2. Norvasc (Amlodipine) 5mg daily was started One of your diabetic blood markers (Hemoglobin A1c) was elevated and you have diabetes. Please follow with your primary care physician to begin a diabetes treatment. Referrals: True Auguste MD [Non Staff, Medical] - 2 Weeks Al Barnett MD [Staff Physician] - 1 Week Disposition: HOME - Home Medications Comprehensive Discharge Medication List: Ambulatory Orders Atenolol [Tenormin -] 50 mg PO DAILY 05/06/18 Amlodipine Besylate [Norvasc -] 5 mg PO HS #30 tablet 05/09/18 Hydrochlorothiazide [Hctz -] 12.5 mg PO DAILY #30 cap 05/09/18 Acetaminophen [Tylenol] 325 mg PO Q6H #30 tablet 05/10/18 Ibuprofen [Motrin Ib] 200 mg PO Q6H #30 tablet 05/10/18 - Discharge Referral Referred to [facility] Med P.C.: No
[2018-05-10 09:14] VITALS: BP 145/83; PULSE 73; TEMP 98.6
[2018-05-10] MEDS: ATENOLOL 50 MG TABLET (FP) PO SCH (09:56)
[2018-05-10] MEDS: NAPH,MB-DB/K PH,MBDB POWDER PACKET PO SCH (09:56)
[2018-05-10] MEDS: HYDROCHLOROTHIAZIDE 12.5 MG CAPSULE (FP) PO SCH (09:56)
--- NOTE | 2018-05-10 13:37 | PATH ---
Surgical Pathology Report Patient Name: DENISE HERNÁNDEZ Med. Rec. #: [id number] /Age/Gender: 1950 (Age: 68) / F Account: [id number] Location: [facility] MED/SURG Taken: 05/08/2018 Received: 05/09/2018 Reported: 05/10/2018 Physicians: Al Barnett M.D. Specimen(s) Received GALLBLADDER Clinical History Abdominal pain, cholecystitis Final Diagnosis GALLBLADDER, CHOLECYSTECTOMY: SEVERE ACUTE SUPERIMPOSED ON CHRONIC CHOLECYSTITIS, CHOLESTEROLOSIS, AND CHOLELITHIASIS. Electronically Signed Sofya Nieto M.D. Gross Description Received in formalin, labeled "gallbladder," is a 7.5 x 4.0 x 3.0 cm. gallbladder with a 0.2 cm. in length portion of cystic duct attached. The outer surface is mckoy-mccann with attached exudate and varies from smooth to shaggy. The lumen contains green, tenacious bile as well as abundant yellow, irregular to fragmented choleliths ranging from 0.1-0.6 cm in greatest dimension. The mucosa is green with gold cholesterol stippling and focal erosions. The fundus displays a 0.5 in dimension yellow possible polyp. The wall of the gallbladder ranges from 0.1-0.3 cm. in thickness. Licensed Practical Nurse Instructor sections are submitted in 2 cassettes as follows: 1-cystic duct margin and sales representative gallbladder; 2-possible fundic polyp. 05/09/201805/09/2018
--- NOTE | 2018-05-10 14:26 | PN ---
Teaching Attending Note Name of Resident: Celestina Chatman ATTENDING PHYSICIAN STATEMENT I saw and evaluated the patient. I reviewed the resident's note and discussed the case with the resident. I agree with the resident's findings and plan as documented. SUBJECTIVE: No fever or chills . abd pain improved . urinated normally and had passed gas OBJECTIVE: NAD Cv : RRR Lungs: CTAB ext : no edema Abd: soft, dressings over surgical wounds. NL BS. TTP in RUQ nad romeo- umbilical area ASSESSMENT AND PLAN: 68 y/o lady with h/o HTN who presented with abd pain and was found to have acute cholecystitis 1- Acute cholecystitis s/p CCY with bile spillage - dc home otday tylenol and ibuprofen after dc instructed not toake more than 4 g o ftylenol a day f/u with sx diet as tolerated 2- HTN: cont current regimen 3- New onset DM . declined starting treatment . would like to follow with her PCP Dc home
== END 2018-05-10 12:55 | disposition home or self-care (01) | DRG 419 ==
LOC: JER 16:56 → JERBED 20:52 → OBSVTOIN 21:48 → J8W 05-07 00:28
PROVIDERS: ADMIT Internal Medicine; ATTEND Internal Medicine
PROC: 0FT44ZZ Resection of Gallbladder, Percutaneous Endoscopic Approach (ICD-10-PCS; principal; 2018-05-06)
DX: K80.00 Calculus of gallbladder with acute cholecystitis without obstruction (principal); E66.9 Obesity, unspecified; I10 Essential (primary) hypertension; Z68.36 Body mass index [BMI] 36.0-36.9, adult; E11.9 Type 2 diabetes mellitus without complications
CPT/HCPCS: 36415; 71045-TC-FY; 74177-TC; 76705-TC; 78226-TC; 80048; 80053; 81003; 81015; 82962; 83036; 83605; 83690; 83735; 84100; 84484; 85025; 85610; 85730; 86850; 86900; 86901; 87040; 88304-TC; 93005; 93010; 94760; 97116-GP; 97161-GP; 99285-25; A9537; G0378; J0131; J7030; Q9967

== ENCOUNTER 2022-09-02 15:43 | Emergency (ER) | payer OTHER ==
[2022-09-02 16:09] VITALS: BP 161/71; PULSE 78; RESP 18; TEMP 97; BMI 33.6
[2022-09-02] MEDS ORDERED: SODIUM CHLORIDE 0.9% 500 ML INFUS.BAG IV ONE (16:39)
[2022-09-02] MEDS ORDERED: FAMOTIDINE 20 MG/50 ML IVPB 20 MG/50 ML MG IVPB ONE ×2 (16:39→17:03)
[2022-09-02 18:05] LABS: BASO % 0.7 % (0-2.0); EOS % 1.2 % (0-4.5); HEMATOCRIT 36.8 % (32.4-45.2); LYMPH % 30.4 % (8-40); MCH 26.5 pg (25.7-33.7); MCHC 32.5 g/dl (32.0-36.0); MEAN CELL VOLUME 81.5 fl (80-96); MEAN PLT VOLUME 8.5 fl (7.5-11.1); MONO % 7.2 % (3.8-10.2); NEUT % 60.5 % (42.8-82.8); PLATELET COUNT 379 10^3/uL (134-434); RBC 4.51 M/mm3 (3.60-5.2); RDW 13.7 % (11.6-15.6); WHITE BLOOD COUNT 8.5 K/mm3 (4.0-10.0)
[2022-09-02 18:08] LABS: EPI CELLS 2 /uL (0-25.1); HYALINE CASTS 0 /uL (0-3.1); PH,URINE 5.5 (5.0-8.0); URINE APPEARANCE CLEAR; URINE BACTERIA 4 /uL (0-1359); URINE BILIRUBIN NEGATIVE (NEGATIVE); URINE COLOR YELLOW; URINE GLUCOSE (UA) NEGATIVE (NEGATIVE); URINE KETONE NEGATIVE (NEGATIVE); URINE LEUK ESTERASE NEGATIVE (NEGATIVE); URINE NITRITE NEGATIVE (NEGATIVE); URINE PROTEIN 1+ (NEGATIVE); URINE RBC 12 /uL (0-23.9); URINE UROBILINOGEN 0.2 mg/dL (0.2-1.0); URINE WBC 11 /uL (0-25.8)
[2022-09-02 18:27] LABS: CALCIUM 9.5 mg/dL (8.5-10.1)
[2022-09-02 18:28] LABS: ALBUMIN 3.7 g/dl (3.4-5.0); BLOOD UREA NITROGEN 15.4 mg/dL (7-18)
[2022-09-02 18:32] LABS: TOT PROT 7.3 g/dl (6.4-8.2)
[2022-09-02 18:38] LABS: BILIRUBIN,TOTAL 0.8 mg/dL (0.2-1)
[2022-09-02] MEDS ORDERED: ACETAMINOPHEN 1000 MG/100 ML BAG IVPB ONE (19:52)
[2022-09-02] MEDS ORDERED: ACETAMINOPHEN INJECTION 100 ML IVPB ONE (20:46)
== END 2022-09-02 22:55 | disposition home or self-care (01) ==
LOC: JER 15:43
PROC: 3E033GC Introduction of Other Therapeutic Substance into Peripheral Vein, Percutaneous Approach (ICD-10-PCS; principal; 2022-09-02)
DX: D25.9 Leiomyoma of uterus, unspecified (principal); R10.84 Generalized abdominal pain
CPT/HCPCS: 0241U-QW; 36415; 74177-TC; 80053; 81003; 83605; 83690; 85025; 87086; 99285-25

== ENCOUNTER 2022-11-24 15:39 | Inpatient (IN) | payer OTHER ==
[2022-11-24] MEDS ORDERED: PIPERACILLIN/TAZOB 4.5 GM 4.5 GM in DEXTROSE 5%-WATER 100 ML IVPB ONE (16:20)
[2022-11-24] MEDS ORDERED: VANCOMYCIN 1 GM in D5W (PRE-DOCKED) 1,000 MG/250 ML (RESTRICTED TO ID ONLY IVPB ONE (16:20)
[2022-11-24] MEDS ORDERED: ACETAMINOPHEN 1000 MG/100 ML BAG IVPB ONE ×2 (17:07→22:54)
[2022-11-24] MEDS ORDERED: SODIUM CHLORIDE 0.9% 500 ML INFUS.BAG IV ONE ×2 (17:07→19:01)
[2022-11-24] MEDS ORDERED: ACETAMINOPHEN INJECTION 100 ML IVPB ONE ×2 (17:17→23:00)
[2022-11-24 17:32] LABS: VENOUS BASE EXCESS -1.8 mmol/L (-2-2); VENOUS O2 SATURATION 84.1 % (70-80); VENOUS PCO2 32.6 mmHg (38-52); VENOUS PH 7.442 (7.310-7.410)
[2022-11-24 17:36] LABS: BASO % 0.8 % (0-2.0); EOS % 0.1 % (0-4.5); HEMATOCRIT 28.9 % (32.4-45.2); HEMOGLOBIN 9.7 GM/dL (10.7-15.3); LYMPH % 41.6 % (8-40); MCH 26.8 pg (25.7-33.7); MCHC 33.4 g/dl (32.0-36.0); MEAN CELL VOLUME 80.2 fl (80-96); MEAN PLT VOLUME 8.4 fl (7.5-11.1); MONO % 6.5 % (3.8-10.2); PLATELET COUNT 250 10^3/uL (134-434); RBC 3.61 M/mm3 (3.60-5.2); RDW 15.7 % (11.6-15.6); WHITE BLOOD COUNT 8.9 K/mm3 (4.0-10.0)
[2022-11-24 17:44] LABS: INR 1.27 (0.83-1.09); PROTHROMBIN TIME (PATIENT) 14.7 SEC (9.7-13.0)
[2022-11-24] MEDS ORDERED: PIPERACILLIN/TAZOB 4.5 GM 4.5 GM/100 ML BAG IVPB ONE ×2 (17:45→17:54)
[2022-11-24 17:46] LABS: ACTIVATED PTT 29.9 SECONDS (25.2-36.5)
[2022-11-24] MEDS ORDERED: VANCOMYCIN/WATER FOR INJ (PEG) 1,000 MG/200 ML BAG IVPB ONE (17:46)
[2022-11-24 18:04] LABS: POTASSIUM 4.4 mmol/L (3.5-5.1)
[2022-11-24 18:06] LABS: ALBUMIN 3.5 g/dl (3.4-5.0); CALCIUM 9.3 mg/dL (8.5-10.1)
[2022-11-24 18:07] LABS: BLOOD UREA NITROGEN 19.8 mg/dL (7-18)
[2022-11-24 18:10] LABS: CREATININE 1.6 mg/dL (0.55-1.3)
[2022-11-24 18:11] LABS: BILIRUBIN,TOTAL 2.2 mg/dL (0.2-1); TOT PROT 6.4 g/dl (6.4-8.2)
[2022-11-24 21:05] LABS: EPI CELLS 2 /uL (0-25.1); HYALINE CASTS 1 /uL (0-3.1); PH,URINE 5.5 (5.0-8.0); URINE APPEARANCE CLEAR; URINE BACTERIA 3 /uL (0-1359); URINE BILIRUBIN NEGATIVE (NEGATIVE); URINE COLOR YELLOW; URINE GLUCOSE (UA) NEGATIVE (NEGATIVE); URINE KETONE NEGATIVE (NEGATIVE); URINE LEUK ESTERASE NEGATIVE (NEGATIVE); URINE NITRITE NEGATIVE (NEGATIVE); URINE PROTEIN 1+ (NEGATIVE); URINE RBC 14 /uL (0-23.9); URINE UROBILINOGEN 0.2 mg/dL (0.2-1.0); URINE WBC 8 /uL (0-25.8)
[2022-11-25] MEDS ORDERED: ACETAMINOPHEN 1000 MG/100 ML BAG IVPB PRN ×2 (00:24→06:00)
[2022-11-25] MEDS ORDERED: SODIUM CHLORIDE 1,000 ML IV SCH ×3 (00:30→11:33)
[2022-11-25] MEDS ORDERED: DEXTROSE 50%-WATER 25 GM/50 ML DISP.SYRIN ONE (00:36)
[2022-11-25] MEDS ORDERED: DEXTROSE 5%-NORMAL SALINE 1,000 ML IV SCH ×2 (01:00→06:15)
[2022-11-25] MEDS ORDERED: DEXTROSE 50%-WATER - 25 GM/50 ML VIAL IVPUSH ONE (01:03)
[2022-11-25] MEDS ORDERED: VANCOMYCIN/WATER 1,250 MG/250 ML BAG (RESTRICTED TO ID ONLY) IVPB SCH (01:15)
[2022-11-25] MEDS ORDERED: VANCOMYCIN/WATER 1250 MG 1,250 MG/250 ML BAG IVPB ONE (01:46)
[2022-11-25] MEDS ORDERED: VANCOMYCIN/WATER 1250 MG 1,250 MG/250 ML BAG IVPB SCH (02:00)
[2022-11-25] MEDS ORDERED: PIPERACILLIN/TAZOB 3.375 GM 3.375 GM in DEXTROSE 5%-WATER - 50 ML IVPB SCH ×2 (03:00→10:00)
[2022-11-25 03:45] LABS: CALCIUM 8.4 mg/dL (8.5-10.1)
[2022-11-25 03:49] LABS: CREATININE 1.4 mg/dL (0.55-1.3)
[2022-11-25] MEDS ORDERED: MEROPENEM 2 GM in DEXTROSE 5%-WATER 100 ML IVPB SCH (05:15)
[2022-11-25] MEDS ORDERED: AMPICILLIN - 2 GM in SODIUM CHLORIDE 100 ML IVPB SCH (05:30)
[2022-11-25] MEDS ORDERED: MEROPENEM 2 GM in DEXTROSE 5%-WATER - 100 ML IVPB SCH (07:00)
[2022-11-25 08:18] LABS: EOS % 0.5 % (0-4.5); HEMATOCRIT 26.7 % (32.4-45.2); HEMOGLOBIN 9.1 GM/dL (10.7-15.3); LYMPH % 31.7 % (8-40); MCH 27.2 pg (25.7-33.7); MCHC 34.2 g/dl (32.0-36.0); MEAN CELL VOLUME 79.6 fl (80-96); MEAN PLT VOLUME 8.4 fl (7.5-11.1); MONO % 6.7 % (3.8-10.2); NEUT % 60.1 % (42.8-82.8); PLATELET COUNT 215 10^3/uL (134-434); RBC 3.35 M/mm3 (3.60-5.2); RDW 15.9 % (11.6-15.6); WHITE BLOOD COUNT 8.1 K/mm3 (4.0-10.0)
[2022-11-25 08:28] LABS: CHLORIDE 108 mmol/L (98-107); POTASSIUM 4.1 mmol/L (3.5-5.1); SODIUM 135 mmol/L (136-145)
[2022-11-25 08:34] LABS: CALCIUM 8.4 mg/dL (8.5-10.1)
[2022-11-25 08:35] LABS: ANION GAP 7 MMOL/L (8-16); BLOOD UREA NITROGEN 14.4 mg/dL (7-18); CO2 20 mmol/L (21-32); GLUCOSE,RANDOM 136 mg/dL (74-106); MAGNESIUM 1.6 mg/dL (1.8-2.4)
[2022-11-25 08:37] LABS: PHOSPHOROUS 3.2 mg/dL (2.5-4.9)
[2022-11-25 08:38] LABS: CREATININE 1.4 mg/dL (0.55-1.3)
[2022-11-25] MEDS: ATENOLOL 50 MG TABLET (FP) PO SCH ×2 (10:23→21:01)
[2022-11-25] MEDS: amLODIPine BESYLATE 10 MG TABLET (FP) PO SCH (10:23)
[2022-11-25] MEDS ORDERED: CEFTRIAXONE 2 GM in DEXTROSE 5%-WATER 100 ML IVPB SCH (12:00)
[2022-11-25] MEDS: PIPERACILLIN/TAZOB 3.375 GM 3.375 GM in DEXTROSE 5%-WATER - 50 ML IVPB SCH (12:02)
[2022-11-25] MEDS ORDERED: HEPARIN NA (PORCINE) 5,000 UNITS/ML 1ML VIAL SQ SCH (14:00)
[2022-11-25] MEDS: ACYCLOVIR INJECTION 800 MG in DEXTROSE 5%-WATER - 250 ML IVPB SCH (15:05)
[2022-11-25] MEDS ORDERED: MAGNESIUM SULF 50% (8.12 MEQ/2 ML-1 GM VIAL) IVPB ONE (16:38)
[2022-11-25 17:02] LABS: INR 1.29 (0.83-1.09); PROTHROMBIN TIME (PATIENT) 14.9 SEC (9.7-13.0)
[2022-11-25 17:03] LABS: ACTIVATED PTT 30.8 SECONDS (25.2-36.5)
[2022-11-25] MEDS: ACETAMINOPHEN 1000 MG/100 ML BAG IVPB PRN (20:51)
[2022-11-25] MEDS: MELATONIN 5 MG TABLETS PO PRN (21:01)
[2022-11-25] MEDS: CEFTRIAXONE 2 GM in DEXTROSE 5%-WATER 100 ML IVPB SCH (22:08)
[2022-11-26] MEDS: ACYCLOVIR INJECTION 800 MG in DEXTROSE 5%-WATER - 250 ML IVPB SCH ×2 (00:08→12:25)
[2022-11-26] MEDS ORDERED: ACETAMINOPHEN 325 MG TABLET (FP) PO PRN ×2 (00:17→06:00)
[2022-11-26 07:37] LABS: BASO % 0.8 % (0-2.0); EOS % 1.9 % (0-4.5); HEMATOCRIT 25.5 % (32.4-45.2); HEMOGLOBIN 9.1 GM/dL (10.7-15.3); LYMPH % 39.7 % (8-40); MCH 28.3 pg (25.7-33.7); MCHC 35.7 g/dl (32.0-36.0); MEAN CELL VOLUME 79.4 fl (80-96); MEAN PLT VOLUME 9.4 fl (7.5-11.1); MONO % 4.7 % (3.8-10.2); NEUT % 52.9 % (42.8-82.8); PLATELET COUNT 202 10^3/uL (134-434); RBC 3.21 M/mm3 (3.60-5.2); RDW 16.1 % (11.6-15.6); WHITE BLOOD COUNT 8.1 K/mm3 (4.0-10.0)
[2022-11-26 08:02] LABS: CHLORIDE 107 mmol/L (98-107); POTASSIUM 3.8 mmol/L (3.5-5.1); SODIUM 136 mmol/L (136-145)
[2022-11-26 08:10] LABS: ANION GAP 8 MMOL/L (8-16); BLOOD UREA NITROGEN 10.2 mg/dL (7-18); CALCIUM 8.3 mg/dL (8.5-10.1); CO2 21 mmol/L (21-32); GLUCOSE,RANDOM 131 mg/dL (74-106); MAGNESIUM 2.1 mg/dL (1.8-2.4)
[2022-11-26 08:13] LABS: CREATININE 1.2 mg/dL (0.55-1.3); PHOSPHOROUS 2.6 mg/dL (2.5-4.9); SGOT/AST 48 U/L (15-37); SGPT/ALT 39 U/L (13-61)
[2022-11-26 08:15] LABS: BILIRUBIN,TOTAL 1.2 mg/dL (0.2-1); TOT PROT 5.8 g/dl (6.4-8.2)
[2022-11-26 08:16] LABS: ALK PHOS 94 U/L (45-117)
[2022-11-26] MEDS: CEFTRIAXONE 2 GM in DEXTROSE 5%-WATER 100 ML IVPB SCH ×2 (09:15→21:33)
[2022-11-26] MEDS: ACETAMINOPHEN 1000 MG/100 ML BAG IVPB PRN (09:16)
[2022-11-26] MEDS: ATENOLOL 50 MG TABLET (FP) PO SCH ×2 (09:17→21:33)
[2022-11-26] MEDS: amLODIPine BESYLATE 10 MG TABLET (FP) PO SCH (09:17)
[2022-11-26] MEDS ORDERED: LIDOCAINE HCL 1%, 10 MG/ML (20ML VIAL) ONE (11:45)
[2022-11-26] MEDS: SODIUM CHLORIDE 1,000 ML IV SCH ×2 (12:25→21:47)
[2022-11-26 13:07] LABS: CSF APPEARANCE CLEAR (CLEAR); CSF COLOR COLORLESS (COLORLESS); CSF WBC 2 mm3 (0-5)
[2022-11-26 13:28] LABS: BF GLUCOSE (CSF ONLY) 83 mg/dL (40-70)
[2022-11-26] MEDS: DOCUSATE SODIUM 100 MG CAPSULE (FP) PO PRN (21:33)
[2022-11-26] MEDS: MELATONIN 5 MG TABLETS PO PRN (21:33)
[2022-11-27] MEDS: ACYCLOVIR INJECTION 800 MG in DEXTROSE 5%-WATER - 250 ML IVPB SCH ×2 (01:00→12:53)
[2022-11-27] MEDS ORDERED: ACETAMINOPHEN 1000 MG/100 ML BAG IVPB ONE (02:00)
[2022-11-27 08:16] LABS: BASO % 0.8 % (0-2.0); EOS % 2.5 % (0-4.5); HEMATOCRIT 26.4 % (32.4-45.2); HEMOGLOBIN 9.1 GM/dL (10.7-15.3); LYMPH % 40.3 % (8-40); MCH 27.7 pg (25.7-33.7); MCHC 34.6 g/dl (32.0-36.0); MEAN CELL VOLUME 79.9 fl (80-96); MEAN PLT VOLUME 9.2 fl (7.5-11.1); MONO % 5.1 % (3.8-10.2); NEUT % 51.3 % (42.8-82.8); PLATELET COUNT 195 10^3/uL (134-434); RDW 15.8 % (11.6-15.6); WHITE BLOOD COUNT 7.5 K/mm3 (4.0-10.0)
[2022-11-27 08:57] LABS: CHLORIDE 109 mmol/L (98-107); POTASSIUM 4.2 mmol/L (3.5-5.1); SODIUM 136 mmol/L (136-145)
[2022-11-27] MEDS: CEFTRIAXONE 2 GM in DEXTROSE 5%-WATER 100 ML IVPB SCH ×2 (08:59→21:28)
[2022-11-27] MEDS: ATENOLOL 50 MG TABLET (FP) PO SCH ×2 (08:59→21:28)
[2022-11-27] MEDS: amLODIPine BESYLATE 10 MG TABLET (FP) PO SCH (08:59)
[2022-11-27] MEDS: SODIUM CHLORIDE 1,000 ML IV SCH ×2 (08:59→12:35)
[2022-11-27 09:01] LABS: CALCIUM 8.5 mg/dL (8.5-10.1); GLUCOSE,RANDOM 126 mg/dL (74-106)
[2022-11-27 09:02] LABS: ANION GAP 7 MMOL/L (8-16); BLOOD UREA NITROGEN 7.9 mg/dL (7-18); CO2 21 mmol/L (21-32); MAGNESIUM 1.9 mg/dL (1.8-2.4)
[2022-11-27 09:05] LABS: SGOT/AST 38 U/L (15-37)
[2022-11-27 09:06] LABS: SGPT/ALT 35 U/L (13-61); TOT PROT 5.8 g/dl (6.4-8.2)
[2022-11-27 09:07] LABS: BILIRUBIN,TOTAL 1.1 mg/dL (0.2-1)
[2022-11-27 09:08] LABS: ALK PHOS 100 U/L (45-117)
[2022-11-27] MEDS: THIAMINE HCL 200 MG/2 ML VIAL IVPB SCH ×3 (14:01→21:41)
[2022-11-27] MEDS: HEPARIN NA (PORCINE) 5,000 UNITS/ML 1ML VIAL SQ SCH (21:41)
[2022-11-27] MEDS: MELATONIN 5 MG TABLETS PO PRN (21:42)
[2022-11-28] MEDS: ACYCLOVIR INJECTION 800 MG in DEXTROSE 5%-WATER - 250 ML IVPB SCH ×2 (00:09→16:30)
[2022-11-28] MEDS ORDERED: ACETAMINOPHEN 500 MG TABLET (FP) PO ONE (03:28)
[2022-11-28] MEDS: THIAMINE HCL 200 MG/2 ML VIAL IVPB SCH ×3 (05:58→22:49)
[2022-11-28] MEDS: HEPARIN NA (PORCINE) 5,000 UNITS/ML 1ML VIAL SQ SCH ×3 (06:02→21:51)
[2022-11-28 08:31] LABS: CHLORIDE 107 mmol/L (98-107); POTASSIUM 3.8 mmol/L (3.5-5.1); SODIUM 138 mmol/L (136-145)
[2022-11-28 08:35] LABS: EOS % 3.5 % (0-4.5); HEMATOCRIT 27.8 % (32.4-45.2); HEMOGLOBIN 9.4 GM/dL (10.7-15.3); LYMPH % 39.4 % (8-40); MCH 27.1 pg (25.7-33.7); MCHC 33.8 g/dl (32.0-36.0); MEAN CELL VOLUME 80.2 fl (80-96); MEAN PLT VOLUME 9.1 fl (7.5-11.1); MONO % 5.4 % (3.8-10.2); NEUT % 50.7 % (42.8-82.8); PLATELET COUNT 209 10^3/uL (134-434); RBC 3.47 M/mm3 (3.60-5.2); RDW 16.2 % (11.6-15.6); WHITE BLOOD COUNT 7.5 K/mm3 (4.0-10.0)
[2022-11-28 08:37] LABS: CALCIUM 8.5 mg/dL (8.5-10.1)
[2022-11-28 08:38] LABS: ANION GAP 9 MMOL/L (8-16); CO2 22 mmol/L (21-32); GLUCOSE,RANDOM 123 mg/dL (74-106); MAGNESIUM 1.7 mg/dL (1.8-2.4)
[2022-11-28 08:41] LABS: CREATININE 0.9 mg/dL (0.55-1.3); PHOSPHOROUS 2.3 mg/dL (2.5-4.9); SGOT/AST 43 U/L (15-37); SGPT/ALT 41 U/L (13-61)
[2022-11-28 08:42] LABS: TOT PROT 5.8 g/dl (6.4-8.2)
[2022-11-28 08:43] LABS: BILIRUBIN,TOTAL 0.9 mg/dL (0.2-1)
[2022-11-28 08:44] LABS: ALK PHOS 100 U/L (45-117)
[2022-11-28] MEDS: amLODIPine BESYLATE 10 MG TABLET (FP) PO SCH (09:39)
[2022-11-28] MEDS: ATENOLOL 50 MG TABLET (FP) PO SCH ×2 (09:39→21:51)
[2022-11-28] MEDS: CEFTRIAXONE 2 GM in DEXTROSE 5%-WATER 100 ML IVPB SCH (15:00)
[2022-11-28] MEDS: SODIUM CHLORIDE 1,000 ML IV SCH (17:36)
[2022-11-28 21:46] LABS: EPI CELLS 3 /uL (0-25.1); HYALINE CASTS 0 /uL (0-3.1); URINE APPEARANCE CLEAR; URINE BACTERIA 0 /uL (0-1359); URINE BILIRUBIN NEGATIVE (NEGATIVE); URINE COLOR YELLOW; URINE GLUCOSE (UA) NEGATIVE (NEGATIVE); URINE KETONE NEGATIVE (NEGATIVE); URINE LEUK ESTERASE NEGATIVE (NEGATIVE); URINE NITRITE NEGATIVE (NEGATIVE); URINE PROTEIN 1+ (NEGATIVE); URINE RBC 13 /uL (0-23.9); URINE UROBILINOGEN 0.2 mg/dL (0.2-1.0); URINE WBC 1 /uL (0-25.8)
[2022-11-28] MEDS: MELATONIN 5 MG TABLETS PO PRN (21:51)
[2022-11-28] MEDS: DOCUSATE SODIUM 100 MG CAPSULE (FP) PO PRN (21:51)
[2022-11-29] MEDS: ACYCLOVIR INJECTION 800 MG in DEXTROSE 5%-WATER - 250 ML IVPB SCH ×2 (01:25→13:37)
[2022-11-29] MEDS: HEPARIN NA (PORCINE) 5,000 UNITS/ML 1ML VIAL SQ SCH ×3 (06:50→21:25)
[2022-11-29] MEDS: THIAMINE HCL 200 MG/2 ML VIAL IVPB SCH ×3 (06:51→22:50)
[2022-11-29 09:11] LABS: BASO % 1.3 % (0-2.0); EOS % 3.9 % (0-4.5); HEMATOCRIT 25.2 % (32.4-45.2); HEMOGLOBIN 8.4 GM/dL (10.7-15.3); LYMPH % 34.6 % (8-40); MCH 27.1 pg (25.7-33.7); MCHC 33.4 g/dl (32.0-36.0); MEAN CELL VOLUME 81.2 fl (80-96); MEAN PLT VOLUME 9.1 fl (7.5-11.1); MONO % 5.7 % (3.8-10.2); NEUT % 54.5 % (42.8-82.8); PLATELET COUNT 214 10^3/uL (134-434); RBC 3.11 M/mm3 (3.60-5.2); RDW 16.1 % (11.6-15.6); WHITE BLOOD COUNT 6.3 K/mm3 (4.0-10.0)
[2022-11-29 09:30] LABS: POTASSIUM 3.6 mmol/L (3.5-5.1)
[2022-11-29] MEDS: amLODIPine BESYLATE 10 MG TABLET (FP) PO SCH (09:36)
[2022-11-29] MEDS: ATENOLOL 50 MG TABLET (FP) PO SCH ×2 (09:36→21:24)
[2022-11-29] MEDS: CEFTRIAXONE 2 GM in DEXTROSE 5%-WATER 100 ML IVPB SCH (09:36)
[2022-11-29 09:37] LABS: ALBUMIN 2.8 g/dl (3.4-5.0); BLOOD UREA NITROGEN 7.6 mg/dL (7-18); CALCIUM 8.3 mg/dL (8.5-10.1); MAGNESIUM 1.7 mg/dL (1.8-2.4)
[2022-11-29 09:40] LABS: CREATININE 0.9 mg/dL (0.55-1.3); PHOSPHOROUS 2.4 mg/dL (2.5-4.9)
[2022-11-29 09:41] LABS: BILIRUBIN,TOTAL 0.9 mg/dL (0.2-1)
[2022-11-29 09:42] LABS: TOT PROT 5.4 g/dl (6.4-8.2)
[2022-11-29] MEDS ORDERED: SODIUM CHLORIDE 1,000 ML IV SCH (16:00)
[2022-11-29] MEDS ORDERED: MAGNESIUM 2GM/50ML STERILE WATER IVPB IVPB ONE (16:55)
[2022-11-29] MEDS ORDERED: NAPH,MB-DB/K PH,MBDB POWDER PACKET PO ONE (16:55)
[2022-11-29] MEDS ORDERED: ACYCLOVIR INJECTION 800 MG in DEXTROSE 5%-WATER - 100 ML IVPB SCH (21:00)
[2022-11-30] MEDS: HEPARIN NA (PORCINE) 5,000 UNITS/ML 1ML VIAL SQ SCH ×3 (05:25→22:20)
[2022-11-30] MEDS: THIAMINE HCL 200 MG/2 ML VIAL IVPB SCH (05:25)
[2022-11-30] MEDS: ACYCLOVIR INJECTION 800 MG in SODIUM CHLORIDE 250 ML IVPB SCH ×3 (06:24→18:01)
[2022-11-30] MEDS: amLODIPine BESYLATE 10 MG TABLET (FP) PO SCH (09:48)
[2022-11-30] MEDS: ATENOLOL 50 MG TABLET (FP) PO SCH ×2 (09:48→22:20)
[2022-11-30 10:10] LABS: BASO % 1.3 % (0-2.0); EOS % 4.3 % (0-4.5); HEMATOCRIT 25.7 % (32.4-45.2); HEMOGLOBIN 8.5 GM/dL (10.7-15.3); MCH 26.9 pg (25.7-33.7); MCHC 32.9 g/dl (32.0-36.0); MEAN CELL VOLUME 81.8 fl (80-96); MEAN PLT VOLUME 8.5 fl (7.5-11.1); MONO % 5.6 % (3.8-10.2); NEUT % 49.8 % (42.8-82.8); PLATELET COUNT 264 10^3/uL (134-434); RBC 3.14 M/mm3 (3.60-5.2); WHITE BLOOD COUNT 6.8 K/mm3 (4.0-10.0)
[2022-11-30 10:28] LABS: POTASSIUM 3.5 mmol/L (3.5-5.1)
[2022-11-30 10:30] LABS: ALBUMIN 2.7 g/dl (3.4-5.0); CALCIUM 8.5 mg/dL (8.5-10.1)
[2022-11-30 10:31] LABS: BLOOD UREA NITROGEN 6.3 mg/dL (7-18); MAGNESIUM 2.2 mg/dL (1.8-2.4)
[2022-11-30 10:33] LABS: CREATININE 0.9 mg/dL (0.55-1.3); PHOSPHOROUS 2.3 mg/dL (2.5-4.9)
[2022-11-30 10:35] LABS: TOT PROT 5.4 g/dl (6.4-8.2)
[2022-11-30 10:40] LABS: BILIRUBIN,TOTAL 0.8 mg/dL (0.2-1)
[2022-11-30] MEDS: CEFTRIAXONE 2 GM in DEXTROSE 5%-WATER 100 ML IVPB SCH (12:09)
[2022-11-30] MEDS: POTASSIUM CHLORIDE 10 MEQ in SODIUM CHLORIDE 0.45% 1,000 ML IVPB SCH (13:32)
[2022-11-30] MEDS ORDERED: NAPH,MB-DB/K PH,MBDB POWDER PACKET PO ONE ×2 (13:43→18:00)
[2022-11-30] MEDS ORDERED: SODIUM CHLORIDE 1,000 ML IV SCH (14:00)
[2022-11-30 16:28] LABS: MYELIN BASIC PROTEIN,CSF 11.9 ng/mL (0.0-5.6)
[2022-12-01] MEDS: ACYCLOVIR INJECTION 800 MG in SODIUM CHLORIDE 250 ML IVPB SCH ×3 (01:28→17:22)
[2022-12-01] MEDS: HEPARIN NA (PORCINE) 5,000 UNITS/ML 1ML VIAL SQ SCH ×3 (05:56→22:14)
[2022-12-01] MEDS ORDERED: ACETAMINOPHEN 325 MG TABLET (FP) PO ONE (06:13)
[2022-12-01 09:18] LABS: BASO % 1.3 % (0-2.0); EOS % 4.4 % (0-4.5); HEMATOCRIT 28.2 % (32.4-45.2); HEMOGLOBIN 9.3 GM/dL (10.7-15.3); LYMPH % 38.2 % (8-40); MCHC 33.1 g/dl (32.0-36.0); MEAN CELL VOLUME 81.4 fl (80-96); MEAN PLT VOLUME 8.2 fl (7.5-11.1); MONO % 6.5 % (3.8-10.2); NEUT % 49.6 % (42.8-82.8); PLATELET COUNT 306 10^3/uL (134-434); RBC 3.46 M/mm3 (3.60-5.2); RDW 16.3 % (11.6-15.6); WHITE BLOOD COUNT 6.6 K/mm3 (4.0-10.0)
[2022-12-01 09:42] LABS: POTASSIUM 3.6 mmol/L (3.5-5.1)
[2022-12-01 09:45] LABS: CALCIUM 8.3 mg/dL (8.5-10.1)
[2022-12-01 09:46] LABS: BLOOD UREA NITROGEN 6.1 mg/dL (7-18)
[2022-12-01 09:48] LABS: MAGNESIUM 1.9 mg/dL (1.8-2.4)
[2022-12-01 09:49] LABS: CREATININE 0.7 mg/dL (0.55-1.3)
[2022-12-01 09:50] LABS: TOT PROT 5.8 g/dl (6.4-8.2)
[2022-12-01 09:51] LABS: PHOSPHOROUS 2.2 mg/dL (2.5-4.9)
[2022-12-01] MEDS ORDERED: THIAMINE HCL 200 MG/2 ML VIAL IVPB SCH (10:00)
[2022-12-01] MEDS: POTASSIUM CHLORIDE 10 MEQ in SODIUM CHLORIDE 0.45% 1,000 ML IVPB SCH ×2 (11:51→14:38)
[2022-12-01] MEDS: amLODIPine BESYLATE 10 MG TABLET (FP) PO SCH (11:52)
[2022-12-01] MEDS: CEFTRIAXONE 2 GM in DEXTROSE 5%-WATER 100 ML IVPB SCH (11:52)
[2022-12-01] MEDS: ATENOLOL 50 MG TABLET (FP) PO SCH ×2 (11:52→22:14)
[2022-12-01] MEDS ORDERED: SODIUM PHOSPHATE - 20 MM in SODIUM CHLORIDE 250 ML IVPB ONE (12:00)
[2022-12-01 14:14] VITALS: BMI 30.1
[2022-12-02] MEDS: ACYCLOVIR INJECTION 800 MG in SODIUM CHLORIDE 250 ML IVPB SCH (04:11)
[2022-12-02] MEDS ORDERED: DOCUSATE SODIUM 100 MG CAPSULE (FP) PO PRN (04:16)
[2022-12-02] MEDS: HEPARIN NA (PORCINE) 5,000 UNITS/ML 1ML VIAL SQ SCH ×3 (05:25→21:45)
[2022-12-02 08:49] LABS: BASO % 1.8 % (0-2.0); EOS % 2.4 % (0-4.5); HEMATOCRIT 27.3 % (32.4-45.2); LYMPH % 41.5 % (8-40); MCH 27.2 pg (25.7-33.7); MCHC 32.8 g/dl (32.0-36.0); MEAN PLT VOLUME 8.1 fl (7.5-11.1); MONO % 6.8 % (3.8-10.2); NEUT % 47.5 % (42.8-82.8); PLATELET COUNT 323 10^3/uL (134-434); RDW 16.4 % (11.6-15.6); WHITE BLOOD COUNT 7.2 K/mm3 (4.0-10.0)
[2022-12-02 09:04] LABS: POTASSIUM 3.5 mmol/L (3.5-5.1)
[2022-12-02 09:07] LABS: CALCIUM 8.6 mg/dL (8.5-10.1)
[2022-12-02 09:08] LABS: ALBUMIN 2.8 g/dl (3.4-5.0); BLOOD UREA NITROGEN 4.2 mg/dL (7-18); MAGNESIUM 1.9 mg/dL (1.8-2.4)
[2022-12-02 09:10] LABS: CREATININE 0.7 mg/dL (0.55-1.3); PHOSPHOROUS 2.5 mg/dL (2.5-4.9)
[2022-12-02 09:12] LABS: TOT PROT 5.6 g/dl (6.4-8.2)
[2022-12-02 09:17] LABS: BILIRUBIN,TOTAL 0.9 mg/dL (0.2-1)
[2022-12-02] MEDS: POTASSIUM CHLORIDE 10 MEQ in SODIUM CHLORIDE 0.45% 1,000 ML IVPB SCH ×2 (10:25→17:25)
[2022-12-02] MEDS: ATENOLOL 50 MG TABLET (FP) PO SCH ×2 (10:25→21:45)
[2022-12-02] MEDS: amLODIPine BESYLATE 10 MG TABLET (FP) PO SCH (10:25)
[2022-12-02] MEDS: CEFTRIAXONE 2 GM in DEXTROSE 5%-WATER 100 ML IVPB SCH (10:27)
[2022-12-02] MEDS: THIAMINE HCL 200 MG/2 ML VIAL IVPB SCH (10:37)
[2022-12-02 14:17] LABS: HIV INTERPRETATION NEGATIVE (NEGATIVE)
[2022-12-02] MEDS ORDERED: POTASSIUM CHLORIDE ORAL LIQUID 20 MEQ/15 ML PO ONE (14:30)
[2022-12-02] MEDS ORDERED: LACTATED RINGERS SOLUTION 1,000 ML/1,000 ML INFUS.BAG IV SCH (19:15)
[2022-12-03] MEDS: HEPARIN NA (PORCINE) 5,000 UNITS/ML 1ML VIAL SQ SCH ×3 (05:44→21:31)
[2022-12-03 08:16] LABS: POTASSIUM 3.9 mmol/L (3.5-5.1)
[2022-12-03 08:17] LABS: BASO % 1.8 % (0-2.0); EOS % 2.7 % (0-4.5); HEMATOCRIT 30.2 % (32.4-45.2); HEMOGLOBIN 10.1 GM/dL (10.7-15.3); LYMPH % 45.2 % (8-40); MCHC 33.3 g/dl (32.0-36.0); MEAN PLT VOLUME 8.5 fl (7.5-11.1); MONO % 4.9 % (3.8-10.2); NEUT % 45.4 % (42.8-82.8); PLATELET COUNT 412 10^3/uL (134-434); RDW 16.6 % (11.6-15.6); WHITE BLOOD COUNT 8.2 K/mm3 (4.0-10.0)
[2022-12-03 08:19] LABS: CALCIUM 9.1 mg/dL (8.5-10.1)
[2022-12-03 08:21] LABS: ALBUMIN 3.2 g/dl (3.4-5.0); BLOOD UREA NITROGEN 5.1 mg/dL (7-18)
[2022-12-03 08:23] LABS: CREATININE 0.8 mg/dL (0.55-1.3)
[2022-12-03 08:24] LABS: BILIRUBIN,TOTAL 1.2 mg/dL (0.2-1); TOT PROT 6.2 g/dl (6.4-8.2)
[2022-12-03] MEDS: POTASSIUM CHLORIDE 10 MEQ in SODIUM CHLORIDE 0.45% 1,000 ML IVPB SCH (09:47)
[2022-12-03] MEDS: ATENOLOL 50 MG TABLET (FP) PO SCH ×2 (09:49→21:31)
[2022-12-03] MEDS: amLODIPine BESYLATE 10 MG TABLET (FP) PO SCH (09:49)
[2022-12-03] MEDS: CEFTRIAXONE 2 GM in DEXTROSE 5%-WATER 100 ML IVPB SCH (09:49)
[2022-12-03] MEDS: THIAMINE HCL 200 MG/2 ML VIAL IVPB SCH (09:49)
[2022-12-03] MEDS ORDERED: ACETAMINOPHEN 325 MG TABLET (FP) PO ONE (21:09)
[2022-12-03] MEDS: MELATONIN 5 MG TABLETS PO PRN (21:31)
[2022-12-04 01:15] LABS: EPI CELLS 13 /uL (0-25.1); HYALINE CASTS 0 /uL (0-3.1); URINE APPEARANCE CLEAR; URINE BACTERIA 1 /uL (0-1359); URINE BILIRUBIN NEGATIVE (NEGATIVE); URINE COLOR YELLOW; URINE GLUCOSE (UA) NEGATIVE (NEGATIVE); URINE KETONE NEGATIVE (NEGATIVE); URINE LEUK ESTERASE NEGATIVE (NEGATIVE); URINE NITRITE NEGATIVE (NEGATIVE); URINE PROTEIN 2+ (NEGATIVE); URINE RBC 20 /uL (0-23.9); URINE UROBILINOGEN 0.2 mg/dL (0.2-1.0); URINE WBC 17 /uL (0-25.8)
[2022-12-04] MEDS: HEPARIN NA (PORCINE) 5,000 UNITS/ML 1ML VIAL SQ SCH ×3 (06:29→21:35)
[2022-12-04 08:39] LABS: BASO % 1.3 % (0-2.0); HEMATOCRIT 27.1 % (32.4-45.2); LYMPH % 45.9 % (8-40); MCH 28.2 pg (25.7-33.7); MCHC 33.2 g/dl (32.0-36.0); MEAN CELL VOLUME 84.9 fl (80-96); MEAN PLT VOLUME 7.8 fl (7.5-11.1); MONO % 6.5 % (3.8-10.2); NEUT % 44.3 % (42.8-82.8); PLATELET COUNT 382 10^3/uL (134-434); RDW 16.4 % (11.6-15.6)
[2022-12-04] MEDS ORDERED: ACETAMINOPHEN 325 MG TABLET (FP) PO ONE (09:30)
[2022-12-04 10:15] LABS: POTASSIUM 3.9 mmol/L (3.5-5.1)
[2022-12-04] MEDS: CEFTRIAXONE 2 GM in DEXTROSE 5%-WATER 100 ML IVPB SCH (10:17)
[2022-12-04] MEDS: amLODIPine BESYLATE 10 MG TABLET (FP) PO SCH (10:18)
[2022-12-04] MEDS: ATENOLOL 50 MG TABLET (FP) PO SCH ×2 (10:18→21:35)
[2022-12-04] MEDS: THIAMINE HCL 200 MG/2 ML VIAL IVPB SCH (10:19)
[2022-12-04 10:21] LABS: ALBUMIN 2.9 g/dl (3.4-5.0); BLOOD UREA NITROGEN 7.8 mg/dL (7-18)
[2022-12-04 10:23] LABS: BILIRUBIN,TOTAL 0.8 mg/dL (0.2-1)
[2022-12-04 10:24] LABS: CREATININE 0.9 mg/dL (0.55-1.3)
[2022-12-04 10:26] LABS: TOT PROT 5.5 g/dl (6.4-8.2)
[2022-12-05] MEDS: HEPARIN NA (PORCINE) 5,000 UNITS/ML 1ML VIAL SQ SCH ×3 (06:47→22:17)
[2022-12-05 07:50] LABS: BASO % 0.4 % (0-2.0); EOS % 1.9 % (0-4.5); HEMATOCRIT 27.6 % (32.4-45.2); HEMOGLOBIN 9.2 GM/dL (10.7-15.3); LYMPH % 47.2 % (8-40); MCH 28.5 pg (25.7-33.7); MCHC 33.4 g/dl (32.0-36.0); MEAN CELL VOLUME 85.2 fl (80-96); MONO % 5.9 % (3.8-10.2); NEUT % 44.6 % (42.8-82.8); PLATELET COUNT 387 10^3/uL (134-434); RBC 3.23 M/mm3 (3.60-5.2); RDW 16.6 % (11.6-15.6); WHITE BLOOD COUNT 7.7 K/mm3 (4.0-10.0)
[2022-12-05 08:13] LABS: BLOOD UREA NITROGEN 8.2 mg/dL (7-18)
[2022-12-05 08:14] LABS: CALCIUM 8.9 mg/dL (8.5-10.1)
[2022-12-05 08:15] LABS: CREATININE 0.9 mg/dL (0.55-1.3)
[2022-12-05 08:17] LABS: BILIRUBIN,TOTAL 0.9 mg/dL (0.2-1); TOT PROT 5.8 g/dl (6.4-8.2)
[2022-12-05] MEDS: ATENOLOL 50 MG TABLET (FP) PO SCH ×2 (09:33→22:19)
[2022-12-05] MEDS: THIAMINE HCL 200 MG/2 ML VIAL IVPB SCH (09:33)
[2022-12-05] MEDS: amLODIPine BESYLATE 10 MG TABLET (FP) PO SCH (09:33)
[2022-12-05] MEDS: ACETAMINOPHEN 325 MG TABLET (FP) PO PRN (15:28)
[2022-12-05] MEDS: LACTATED RINGERS SOLUTION 1,000 ML/1,000 ML INFUS.BAG IV SCH (16:06)
[2022-12-05] MEDS: MELATONIN 5 MG TABLETS PO PRN (22:18)
[2022-12-05] MEDS: NAPROXEN 250 MG TABLET PO SCH (22:20)
[2022-12-06] MEDS: HEPARIN NA (PORCINE) 5,000 UNITS/ML 1ML VIAL SQ SCH ×3 (05:51→21:50)
[2022-12-06 08:49] LABS: BASO % 1.4 % (0-2.0); HEMOGLOBIN 9.7 GM/dL (10.7-15.3); LYMPH % 46.3 % (8-40); MCH 28.3 pg (25.7-33.7); MCHC 33.5 g/dl (32.0-36.0); MEAN CELL VOLUME 84.4 fl (80-96); MEAN PLT VOLUME 7.5 fl (7.5-11.1); MONO % 6.4 % (3.8-10.2); NEUT % 43.9 % (42.8-82.8); PLATELET COUNT 380 10^3/uL (134-434); RBC 3.43 M/mm3 (3.60-5.2); RDW 17.5 % (11.6-15.6); WHITE BLOOD COUNT 7.8 K/mm3 (4.0-10.0)
[2022-12-06 09:11] LABS: POTASSIUM 3.9 mmol/L (3.5-5.1)
[2022-12-06 09:13] LABS: CALCIUM 8.8 mg/dL (8.5-10.1)
[2022-12-06 09:14] LABS: BLOOD UREA NITROGEN 8.3 mg/dL (7-18)
[2022-12-06 09:17] LABS: CREATININE 0.9 mg/dL (0.55-1.3)
[2022-12-06 09:19] LABS: BILIRUBIN,TOTAL 1.4 mg/dL (0.2-1); TOT PROT 5.5 g/dl (6.4-8.2)
[2022-12-06] MEDS: NAPROXEN 250 MG TABLET PO SCH ×2 (11:11→21:51)
[2022-12-06] MEDS: amLODIPine BESYLATE 10 MG TABLET (FP) PO SCH (11:13)
[2022-12-06] MEDS: ATENOLOL 50 MG TABLET (FP) PO SCH ×2 (11:14→21:48)
[2022-12-06] MEDS: ACETAMINOPHEN 325 MG TABLET (FP) PO PRN (13:49)
[2022-12-06] MEDS: LACTATED RINGERS SOLUTION 1,000 ML/1,000 ML INFUS.BAG IV SCH ×2 (14:26→16:35)
[2022-12-06 17:07] LABS: WEST NILE VIRUS AB SERUM,IGM Negative (Negative)
[2022-12-06] MEDS ORDERED: KETOROLAC TROMETHAMINE 15 MG/ML VIAL IVPUSH ONE (17:37)
[2022-12-06 18:59] LABS: BILIRUBIN,DIRECT 0.3 mg/dL (0.0-0.2)
[2022-12-07] MEDS: LACTATED RINGERS SOLUTION 1,000 ML/1,000 ML INFUS.BAG IV SCH (03:54)
[2022-12-07] MEDS: HEPARIN NA (PORCINE) 5,000 UNITS/ML 1ML VIAL SQ SCH (06:18)
[2022-12-07] MEDS: ACETAMINOPHEN 325 MG TABLET (FP) PO PRN (07:01)
[2022-12-07 10:36] VITALS: BP 157/68; PULSE 85; RESP 20; TEMP 99.4
[2022-12-07] MEDS: NAPROXEN 250 MG TABLET PO SCH (10:38)
[2022-12-07] MEDS: amLODIPine BESYLATE 10 MG TABLET (FP) PO SCH (10:38)
[2022-12-07] MEDS: ATENOLOL 50 MG TABLET (FP) PO SCH (10:38)
== END 2022-12-07 11:24 | disposition short-term general hospital (02) | DRG 754 ==
LOC: JER 15:39 → JERBED 11-25 00:01 → J4W 11-25 03:25 → J7W 11-29 13:06
PROVIDERS: ADMIT Internal Medicine; ATTEND Internal Medicine
PROC: 009U3ZX Drainage of Spinal Canal, Percutaneous Approach, Diagnostic (ICD-10-PCS; principal; 2022-11-26)
PROC: 4A00X4Z Measurement of Central Nervous Electrical Activity, External Approach (ICD-10-PCS; 2022-11-28)
DX: C54.1 Malignant neoplasm of endometrium (principal); G04.90 Encephalitis and encephalomyelitis, unspecified; G93.41 Metabolic encephalopathy; C78.6 Secondary malignant neoplasm of retroperitoneum and peritoneum; J98.11 Atelectasis; M62.82 Rhabdomyolysis; N17.9 Acute kidney failure, unspecified; R50.9 Fever, unspecified; I10 Essential (primary) hypertension; E78.5 Hyperlipidemia, unspecified; D64.9 Anemia, unspecified; D25.9 Leiomyoma of uterus, unspecified; K76.0 Fatty (change of) liver, not elsewhere classified; E11.9 Type 2 diabetes mellitus without complications; E86.0 Dehydration; G13.0 Paraneoplastic neuromyopathy and neuropathy; G30.9 Alzheimer's disease, unspecified; F02.80 Dementia in other diseases classified elsewhere, unspecified severity, without behavioral disturbance, psychotic disturbance, mood disturbance, and anxiety; R77.8 Other specified abnormalities of plasma proteins
CPT/HCPCS: 0241U-QW; 36415; 70450-TC; 70551-TC; 70552-TC; 71045-TC-FY; 71250-TC; 74176-TC; 74177-TC; 76705-TC; 76830-TC; 80048; 80053; 81003; 82140; 82248; 82550; 82553; 82607; 82728; 82746; 82784; 82803; 82930; 82945; 82962; 83010; 83540; 83550; 83605; 83615; 83735; 83873; 84100; 84155; 84157; 84165; 84439; 84443; 84484; 85025; 85610; 85730; 86038; 86140; 86225; 86235; 86592; 86617; 86618; 86666; 86694; 86735; 86757; 86765; 86780; 86787; 86788; 86789; 87040; 87070; 87077; 87086; 87205; 87207; 87389; 87529; 87635; 87798; 88108; 88305-TC; 93005; 93010; 93306-TC; 93970-TC; 95816; 97116-GP; 97162-GP; 99285-25; J1644